=== PATIENT | female | born 1965 | race Caucasian/White ===

== ENCOUNTER 2018-01-06 01:02 | Inpatient (IN) | payer MEDICAID ==
[~2018-01-06] VITALS: Ht 172.7 cm; Wt 104.3 kg
[2018-01-06] VITALS (9 sets, daily range): BP systolic 128–162; BP diastolic 59–103
[2018-01-06] MEDS ORDERED: Albuterol ud Inhalation HHN ONE (01:15)
[2018-01-06] MEDS ORDERED: Ipratropium 0.02% Inh Soln 2.5ml UD HHN ONE (01:15)
[2018-01-06] MEDS ORDERED: Solu-MEDROL 125mg Inj IVP ONE (01:15)
[2018-01-06 01:44] LABS: BASOPHILS % (AUTO) 0.6 % (0.0-2.0); EOSINOPHILS % (AUTO) 2.5 % (0.0-3.0); HEMATOCRIT 38.3 % (37.0-47.0); HEMOGLOBIN 12.9 G/DL (12.0-16.0); LYMPHOCYTES % (AUTO) 39.8 % (20.0-45.0); MEAN CORPUSCULAR VOLUME 88 FL (80-99); NEUTROPHILS % (AUTO) 50.1 % (45.0-75.0); PLATELET COUNT 300 K/UL (150-450); RED BLOOD COUNT 4.37 M/UL (4.20-5.40); RED CELL DISTRIBUTION WIDTH 12.5 % (11.6-14.8); WHITE BLOOD COUNT 7.7 K/UL (4.8-10.8)
[2018-01-06 01:51] LABS: BILIRUBIN, URINE NEGATIVE (NEGATIVE); GLUCOSE, URINE (UA) NEGATIVE (NEGATIVE); KETONES,URINE 1+ (NEGATIVE); LEUKOCYTE ESTERASE ,URINE 1+ (NEGATIVE); NITRITE,URINE NEGATIVE (NEGATIVE); PH,URINE 5 (4.5-8.0); PROTEIN,URINE 3+ (NEGATIVE); UROBILINOGEN,URINE NORMAL MG/DL (0.0-1.0)
[2018-01-06 01:55] LABS: ANION GAP 9 mmol/L (5-15); BLOOD UREA NITROGEN 14 mg/dL (7-18); CALCIUM 9.2 MG/DL (8.5-10.1); CARBON DIOXIDE 30 MMOL/L (21-32); CHLORIDE 102 MMOL/L (98-107); SODIUM 141 MMOL/L (136-145)
[2018-01-06 01:56] LABS: COLOR,URINE YELLOW
[2018-01-06 01:57] LABS: APPEARANCE,URINE SLIGHTLY CLOUDY
[2018-01-06 02:07] LABS: ALANINE AMINOTRANSFERASE 21 U/L (12-78); ALBUMIN 3.5 G/DL (3.4-5.0); ALBUMIN/GLOBULIN RATIO 0.8 (1.0-2.7); ALKALINE PHOSPHATASE 83 U/L (46-116); ASPARTATE AMINO TRANSFERASE 21 U/L (15-37); BILIRUBIN,TOTAL 0.3 MG/DL (0.2-1.0)
--- NOTE | 2018-01-06 02:08 | Emergency Room Report ---
History of Present Illness General Chief Complaint: Dyspnea/Respdistress Source: Patient Present Illness HPI Patient has been ill for > 1 week. URI with cough and chest pain with coughing. Tonight worsened SUN. Paramedics found with O2 sat 80%. Also she had wheezes and was treated with albuterol 5 mg with improvement. Still feels CP as well as dyspnea. Allergies: Coded Allergies: SULFA (SULFONAMIDE ANTIBIOTICS) (Verified Allergy, Unknown, 01/06/18) Patient History Now: No Nursing Documentation-PMH Hx Hypertension: Yes Hx Asthma: Yes Physical Exam Vital Signs Date Time Temp Pulse Resp B/P (MAP) Pulse Ox O2 Delivery O2 Flow Rate FiO2 01/06/18 00:55 97.0 120 22 167/82 90 Room Air 01/06/18 01:20 21 Sp02 EP Interpretation: reviewed, abnormal - interpreted as low by me General Appearance: well appearing, no apparent distress, GCS 15 Head: normocephalic Eyes: bilateral eye normal inspection, bilateral eye PERRL ENT: moist mucus membranes Neck: supple Respiratory: no respiratory distress, crackles, wheezing, expiration Cardiovascular #1: tachycardia, edema - brawney bilaterally Cardiovascular #2: 2+ radial (R) Gastrointestinal: normal inspection, normal bowel sounds, non tender, no mass, non-distended Musculoskeletal: back normal, digits/nails normal, no calf tenderness Neurologic: alert, oriented x3, grossly normal Psychiatric: mood/affect normal Skin: normal inspection, warm/dry, other - chronic venous changes LE Medical Decision Making Diagnostic Impression: Primary Impression: Hypoxia Additional Impressions: Bronchospasm UTI (urinary tract infection) Qualified Codes: N30.00 - Acute cystitis without hematuria Elevated lactic acid level ER Course Patient presents with cough for approximately one week with minimal productive phlegm, wheezes and shortness of breath. Differential includes pneumonia, asthma, pneumothorax, acute myocardial infarction, PE amongst others. Patient be treated with Solu-Medrol, breathing treatments and evaluated with EKG, chest x-ray and labs. Consider non-invasive vasc study of LE. EKG shows no injury. Chest x-ray shows possible early right lobe infiltrate and COPD. Labs are significant for normal white count. Pyuria. Improved with treatment. Antibiotics begun for UTI. Admit med Dr. Balderrama. Laboratory Tests Test 01/06/18 01:15 01/06/18 01:44 White Blood Count 7.7 K/UL (4.8-10.8) Red Blood Count 4.37 M/UL (4.20-5.40) Hemoglobin 12.9 G/DL (12.0-16.0) Hematocrit 38.3 % (37.0-47.0) Mean Corpuscular Volume 88 FL (80-99) Mean Corpuscular Hemoglobin 29.6 PG (27.0-31.0) Mean Corpuscular Hemoglobin Concent 33.8 G/DL (32.0-36.0) Red Cell Distribution Width 12.5 % (11.6-14.8) Platelet Count 300 K/UL (150-450) Mean Platelet Volume 8.6 FL (6.5-10.1) Neutrophils (%) (Auto) 50.1 % (45.0-75.0) Lymphocytes (%) (Auto) 39.8 % (20.0-45.0) Monocytes (%) (Auto) 7.0 % (1.0-10.0) Eosinophils (%) (Auto) 2.5 % (0.0-3.0) Basophils (%) (Auto) 0.6 % (0.0-2.0) Prothrombin Time 10.0 SEC (9.30-11.50) Prothrombin Time INR 1.0 (0.9-1.1) PTT 24 SEC (23-33) Urine Color Yellow Urine Appearance Slightly cloudy Urine pH 5 (4.5-8.0) Urine Specific [place] 1.030 (1.005-1.035) Urine Protein 3+ (NEGATIVE) H Urine Glucose (UA) Negative (NEGATIVE) Urine Ketones 1+ (NEGATIVE) H Urine Occult Blood 1+ (NEGATIVE) H Urine Nitrite Negative (NEGATIVE) Urine Bilirubin Negative (NEGATIVE) Urine Urobilinogen Normal MG/DL (0.0-1.0) Urine Leukocyte Esterase 1+ (NEGATIVE) H Urine RBC 2-4 /HPF (0 - 2) H Urine WBC 10-15 /HPF (0 - 2) H Urine Squamous Epithelial Cells Many /LPF (NONE/OCC) H Urine Amorphous Sediment Moderate /LPF (NONE) H Urine Bacteria Moderate /HPF (NONE) H Sodium Level 141 MMOL/L (136-145) Potassium Level 3.0 MMOL/L (3.5-5.1) L Chloride Level 102 MMOL/L (98-107) Carbon Dioxide Level 30 MMOL/L (21-32) Anion Gap 9 mmol/L (5-15) Blood Urea Nitrogen 14 mg/dL (7-18) Creatinine 1.0 MG/DL (0.55-1.30) Estimate Glomerular Filtration Rate 58.2 mL/min (>60) Glucose Level 177 MG/DL (74-106) H Calcium Level 9.2 MG/DL (8.5-10.1) Total Bilirubin 0.3 MG/DL (0.2-1.0) Aspartate Amino Transferase (AST) 21 U/L (15-37) Alanine Aminotransferase (ALT) 21 U/L (12-78) Alkaline Phosphatase 83 U/L (46-116) Pro-B-Type Natriuretic Peptide 99 pg/mL (0-125) Total Protein 7.9 G/DL (6.4-8.2) Albumin 3.5 G/DL (3.4-5.0) Globulin 4.4 g/dL Albumin/Globulin Ratio 0.8 (1.0-2.7) L Lactic Acid Level 3.70 mmol/L (0.66-2.22) H Microbiology Date/Time Source Procedure Growth Status 01/06/18 01:23 Nasal Nares Influenza Types A,B Antigen (NIK) - Final Complete EKG Diagnostic Results Rate: tachycardiac Rhythm: NSR ST Segments: no acute changes Rhythm Strip Diag. Results EP Interpretation: yes Rhythm: no PVC's, no ectopy, other - ST Chest X-Ray Diagnostic Results Chest X-Ray Diagnostic Results : Chest X-Ray Ordered: Yes # of Views/Limited/Complete: 1 View Indication: Shortness of Breath EP Interpretation: Yes Interpretation: no effusion, no pneumothorax, other - RML infiltrate Status: improved Disposition: ADMITTED INPATIENT Condition: Serious Scripts Unable to Obtain Active Prescriptions or Reported Meds Arjun Mckeon M.D. Jan 06, 2018 02:08
[2018-01-06] MEDS ORDERED: cefTRIAXone 1 GM in NS 55 ML IVPB ONE (02:30)
[2018-01-06] MEDS ORDERED: Ketorolac 30mg Inj IV PRN (07:00)
[2018-01-06] MEDS ORDERED: Promethazine/Codeine 5ml UD ORAL PRN (07:00)
[2018-01-06] MEDS ORDERED: Albuterol/Ipratropium 3ml neb HHN PRN (07:00)
[2018-01-06] MEDS ORDERED: Nitroglycerin Subl 0.4mg tab SL PRN (07:00)
[2018-01-06] MEDS ORDERED: LORazepam Inj 2mg/ml 1ml IV PRN (07:00)
[2018-01-06] MEDS ORDERED: Morphine Sulfate 2mg/ml Inj IVP PRN (07:00)
[2018-01-06] MEDS: Solu-MEDROL 125mg Inj IV SCH ×2 (09:16→18:23)
[2018-01-06] MEDS: Theophylline ER 100mg ORAL SCH ×2 (09:16→20:53)
[2018-01-06] MEDS: Heparin 5000 units/ml inj SUBQ SCH ×2 (09:23→20:56)
[2018-01-06] MEDS ORDERED: Piperacillin/Tazobactam 3.375 GM in NS 110 ML IVPB SCH (10:00)
--- NOTE | 2018-01-06 10:24 | Diagnostic Imaging Report ---
Indication: Dyspnea Comparison: None A single view chest radiograph was obtained. Findings: Cardiomediastinal appearance is within normal limits for age. Pulmonary vascularity is appropriate. The diaphragmatic contour is smooth and costophrenic angles are sharp. No pleural effusions are identified. The bones are unremarkable. Impression: No acute findings
--- NOTE | 2018-01-06 18:02 | Consultation ---
History of Present Illness General Date patient seen: Jan 06, 2018 Chief Complaint: Dyspnea/Respdistress Present Illness HPI 52 year old female with hx of HTN, asthma, anxiety presented to ER with CC of dyspnea, cough, congestion for > 1 week. URI with cough and chest pain with coughing and worsened SUN. Paramedics found with O2 sat 80%. Also she had wheezes and was treated with albuterol 5 mg with improvement. Still feels CP as well as dyspnea. she is admitted for acute exacerbation of COPd and bronchitis. Allergies: Coded Allergies: SULFA (SULFONAMIDE ANTIBIOTICS) (Verified Allergy, Unknown, 01/06/18) Medication History Unable to Obtain Active Prescriptions or Reported Meds Patient History Healthcare decision maker STAN RODRIGES Resuscitation status Full Code Advanced Directive on File No Past Medical/Surgical History Past Medical/Surgical History: (1) OCD (obsessive compulsive disorder) (2) COPD (chronic obstructive pulmonary disease) Review of Systems All Other Systems: negative except mentioned in HPI Physical Exam General Appearance: WD/WN Lines, tubes and drains: peripheral HEENT: normocephalic, atraumatic Neck: non-tender, normal alignment Respiratory/Chest: rhonchi - left, rhonchi - right Abdomen: normal bowel sounds, non tender Genitourinary/Rectal: normal genital exam Extremities: normal range of motion, non-tender Last 24 Hour Vital Signs Date Time Temp Pulse Resp B/P (MAP) Pulse Ox O2 Delivery O2 Flow Rate FiO2 01/06/18 15:46 98.2 106 19 145/75 94 01/06/18 12:00 97.9 101 19 141/88 93 01/06/18 08:15 97.9 96 20 148/81 93 Room Air 01/06/18 08:00 98.2 106 22 162/90 93 01/06/18 05:29 98.1 106 19 128/75 95 Room Air 01/06/18 04:47 97.0 109 17 153/67 94 Room Air 21 01/06/18 03:19 97.0 109 17 153/67 94 Room Air 21 01/06/18 01:38 131 24 98 Room Air 21 01/06/18 01:36 136 25 Room Air 21 01/06/18 01:21 136 25 Room Air 21 01/06/18 01:20 136 25 97 Room Air 21 01/06/18 01:20 21 01/06/18 00:55 97.0 120 22 167/82 90 Room Air Intake and Output 01/05/18 01/06/18 19:00 07:00 Intake Total 0 ml Balance 0 ml Intake Oral 0 ml # Voids 1 Laboratory Tests Test 01/06/18 01:15 01/06/18 01:44 01/06/18 03:30 White Blood Count 7.7 K/UL (4.8-10.8) Red Blood Count 4.37 M/UL (4.20-5.40) Hemoglobin 12.9 G/DL (12.0-16.0) Hematocrit 38.3 % (37.0-47.0) Mean Corpuscular Volume 88 FL (80-99) Mean Corpuscular Hemoglobin 29.6 PG (27.0-31.0) Mean Corpuscular Hemoglobin Concent 33.8 G/DL (32.0-36.0) Red Cell Distribution Width 12.5 % (11.6-14.8) Platelet Count 300 K/UL (150-450) Mean Platelet Volume 8.6 FL (6.5-10.1) Neutrophils (%) (Auto) 50.1 % (45.0-75.0) Lymphocytes (%) (Auto) 39.8 % (20.0-45.0) Monocytes (%) (Auto) 7.0 % (1.0-10.0) Eosinophils (%) (Auto) 2.5 % (0.0-3.0) Basophils (%) (Auto) 0.6 % (0.0-2.0) Prothrombin Time 10.0 SEC (9.30-11.50) Prothromb Time International Ratio 1.0 (0.9-1.1) Activated Partial Thromboplast Time 24 SEC (23-33) Urine Color Yellow Urine Appearance Slightly cloudy Urine pH 5 (4.5-8.0) Urine Specific [place] 1.030 (1.005-1.035) Urine Protein 3+ (NEGATIVE) H Urine Glucose (UA) Negative (NEGATIVE) Urine Ketones 1+ (NEGATIVE) H Urine Occult Blood 1+ (NEGATIVE) H Urine Nitrite Negative (NEGATIVE) Urine Bilirubin Negative (NEGATIVE) Urine Urobilinogen Normal MG/DL (0.0-1.0) Urine Leukocyte Esterase 1+ (NEGATIVE) H Urine RBC 2-4 /HPF (0 - 2) H Urine WBC 10-15 /HPF (0 - 2) H Urine Squamous Epithelial Cells Many /LPF (NONE/OCC) H Urine Amorphous Sediment Moderate /LPF (NONE) H Urine Bacteria Moderate /HPF (NONE) H Sodium Level 141 MMOL/L (136-145) Potassium Level 3.0 MMOL/L (3.5-5.1) L Chloride Level 102 MMOL/L (98-107) Carbon Dioxide Level 30 MMOL/L (21-32) Anion Gap 9 mmol/L (5-15) Blood Urea Nitrogen 14 mg/dL (7-18) Creatinine 1.0 MG/DL (0.55-1.30) Estimat Glomerular Filtration Rate 58.2 mL/min (>60) Glucose Level 177 MG/DL (74-106) H Calcium Level 9.2 MG/DL (8.5-10.1) Total Bilirubin 0.3 MG/DL (0.2-1.0) Aspartate Amino Transf (AST/SGOT) 21 U/L (15-37) Alanine Aminotransferase (ALT/SGPT) 21 U/L (12-78) Alkaline Phosphatase 83 U/L (46-116) Pro-B-Type Natriuretic Peptide 99 pg/mL (0-125) Total Protein 7.9 G/DL (6.4-8.2) Albumin 3.5 G/DL (3.4-5.0) Globulin 4.4 g/dL Albumin/Globulin Ratio 0.8 (1.0-2.7) L Lactic Acid Level 3.70 mmol/L (0.66-2.22) H 3.60 mmol/L (0.66-2.22) H Microbiology Date/Time Source Procedure Growth Status 01/06/18 01:23 Nasal Nares Influenza Types A,B Antigen (NIK) - Final Complete Height (Feet): 5 Height (Inches): 8.00 Weight (Pounds): 230 Medications Current Medications Medications (Trade) Dose Ordered Sig/Gabrielle Route PRN Reason Start Time Stop Time Status Last Admin Dose Admin Albuterol/ Ipratropium (Albuterol/ Ipratropium) 3 ml Q4H PRN HHN dyspnea 01/06/18 07:00 01/11/18 06:59 Dextrose (Dextrose 50%) STAT PRN IV Hypoglycemia 01/06/18 07:00 02/05/18 06:59 Heparin Sodium (Porcine) (Heparin 5000 units/ml) 5,000 units EVERY 12 HOURS SUBQ 01/06/18 09:00 02/05/18 08:59 01/06/18 09:23 Ketorolac Tromethamine (Toradol 30mg) 30 mg Q8H PRN IV moderate pain 4-6 01/06/18 07:00 01/11/18 06:59 Lorazepam (Ativan 2mg/ml 1ml) 0.5 mg Q4H PRN IV For Anxiety 01/06/18 07:00 01/13/18 06:59 Methylprednisolone Sodium Succinate (Solu-MEDROL) 60 mg EVERY 6 HOURS IV 01/06/18 09:00 02/05/18 08:59 01/06/18 09:16 Morphine Sulfate (Morphine Sulfate) 2 mg Q4H PRN IVP severe pain 7-10 01/06/18 07:00 01/13/18 06:59 Nitroglycerin (Ntg) 0.4 mg Q5M X 3 DOSES PRN SL Prn Chest Pain 01/06/18 07:00 02/05/18 06:59 Ondansetron HCl (Zofran) 4 mg Q6H PRN IVP Nausea & Vomiting 01/06/18 07:00 02/05/18 06:59 Promethazine HCl/ Codeine (Phenergan with Codeine) 5 ml Q6H PRN ORAL cough 01/06/18 07:00 02/05/18 06:59 Temazepam (Restoril) 15 mg HSPRN PRN ORAL Insomnia 01/06/18 07:00 01/13/18 06:59 Theophylline ([place]) 100 mg EVERY 12 HOURS ORAL 01/06/18 09:00 02/05/18 08:59 01/06/18 09:16 Assessment/Plan Problem List: (1) Pneumonia ICD Codes: J18.9 - Pneumonia, unspecified organism SNOMED: 782578400 (2) UTI (urinary tract infection) ICD Codes: N39.0 - Urinary tract infection, site not specified SNOMED: 64867313 Qualifiers: Qualified Codes: N30.00 - Acute cystitis without hematuria (3) Hypoxia ICD Codes: R09.02 - Hypoxemia SNOMED: 821100742 (4) Bronchospasm ICD Codes: J98.01 - Acute bronchospasm SNOMED: 4568029 (5) COPD (chronic obstructive pulmonary disease) ICD Codes: J44.9 - Chronic obstructive pulmonary disease, unspecified SNOMED: 70795818 Assessment/Plan respiratory treatment IV abx, IV steroids respiratory treatment titrate fio2 BIRAN VILLARREAL Jan 06, 2018 18:02
--- NOTE | 2018-01-06 19:30 | Cardiology Report ---
APPROVED REPORT EKG Measurement Heart [id number] NM [id number] [id number] Sinus tachycardia Left ventricular hypertrophy with repolarization abnormality Cannot rule out Septal infarct, age undetermined Abnormal ECG
--- NOTE | 2018-01-06 21:45 | History and Physical Report ---
DATE OF ADMISSION: 01/06/2018 TIME: 1 p.m. CONSULTANTS: 1. Alexx Ponce M.D. 2. Dr. Torres. 3. Miguelito Saini M.D. CHIEF COMPLAINT: Pneumonia, sepsis, OCD, and COPD exacerbation. BRIEF HISTORY: This is a 52-year-old female, who lives at home with history of COPD and OCD complaining of increased shortness of breath, cough. No fevers two days. The patient came to [facility] last night, diagnosed with COPD exacerbation, pneumonia and sepsis and admitted to medical floor for further care. Currently, slightly anxious in bed, oriented x3, in no acute distress. PAST MEDICAL HISTORY: COPD, anxiety, OCD and obesity. PAST SURGICAL HISTORY: None. MEDICATIONS: Zosyn, heparin, Solu-Medrol, theophylline, albuterol, Toradol, Ativan, morphine, nitroglycerin, and Phenergan with codeine. ALLERGIES: Sulfa. SOCIAL HISTORY: No smoking. No alcohol. No intravenous drug use. FAMILY HISTORY: Noncontributory. REVIEW OF SYSTEMS: No chest pain/short of breath. No nausea, vomiting, or diarrhea. PHYSICAL EXAMINATION: GENERAL: Slightly anxious in bed, oriented x3, in no acute distress. VITAL SIGNS: Temperature is 97 degrees, pulse 101, respirations 19, and blood pressure 141/88. CARDIOVASCULAR: No murmur. LUNGS: Poor air exchange. ABDOMEN: Bowel sound distant. EXTREMITIES: No cyanosis, clubbing, or edema. NEUROLOGIC: The patient moves all extremities, slightly weak. LABORATORY AND DIAGNOSTIC DATA: CBC is normal. BMP show potassium 3.0, glucose 177 and lactic acid 3.7, otherwise BMP is normal. INR is 1.0. Urinalysis show 3+ protein, 1+ ketone, 1+ occult blood, and 1+ leukocyte esterase. ASSESSMENT: 1. Pneumonia. 2. Urinary tract infection. 3. Sepsis. 4. Chronic obstructive pulmonary disease exacerbation. 5. Anxiety. 6. Shortness of breath. 7. Coughing. 8. Obsessive-compulsive disorder 9. Hypokalemia. PLAN: 1. Continue premedications. 2. OT/PT. 3. Dietary evaluation. 4. CBC and BMP in the morning. 5. O2 and pulmonary . 6. Antibiotics per Infectious Disease. 7. Resume home medications. 8. Dr. Ponce, Dr. Torres and Dr. Shin to consult. 9. We will continue to follow the patient. Seymour Balderrama D.O. DR: HILL JOB#: [id number] CC:
--- NOTE | 2018-01-06 22:30 | Consultation ---
DATE OF CONSULTATION: 01/06/2018 INFECTIOUS DISEASE CONSULTATION CONSULTING PHYSICIAN: Adi Braun M.D. PRIMARY ATTENDING PHYSICIAN: Seymour Balderrama M.D. REASON FOR CONSULTATION: Urinary tract infection, chronic obstructive pulmonary disease exacerbation. HISTORY OF PRESENT ILLNESS: This is a 52-year-old white female, admitted today from home complaining of cough, shortness of breath, and wheezing. The patient had coughing for two weeks, states the son had also similar upper respiratory symptoms, but today also developed palpitations. The patient had history of childhood asthma and he states that he feel like shortness of breath like asthma attack. She also states she got panic. She thinks that she may have developed some urinary tract infection. She has a lot of coughing and has to go to the bathroom frequently for urination. PAST MEDICAL HISTORY: Childhood asthma and has obesity. ALLERGIES: Allergic to sulfa drugs and develops shortness of breath and presence of horses. MEDICATIONS: Zosyn, heparin, methylprednisone, theophylline, albuterol, ipratropium, Toradol, lorazepam, morphine, nitroglycerin, Zofran, and Phenergan with codeine. SOCIAL HISTORY: Lives at home. Single.. No history of alcohol, drug abuse, or smoking. He is concerned about black mold in the household. REVIEW OF SYSTEMS: No fever. No chills. Has palpitations. No nausea. No vomiting. No diarrhea. Has urinary frequency, has coughing that is usually nonproductive. PHYSICAL EXAMINATION: VITAL SIGNS: Temperature 97.9, pulse 101, and blood pressure 141/88. GENERAL APPEARANCE: Seems to be obese. HEAD AND NECK: [place] conjunctiva. No oral lesion. HEART: Tachycardic. LUNGS: Clear. ABDOMEN: Soft and obese. EXTREMITIES: She has trace edema. NEUROLOGIC: Awake, alert, and oriented. LABORATORY AND DIAGNOSTIC DATA: Labs, sodium 141, potassium 3, chloride 102, bicarbonate 30, and glucose is 177. Lactic acid is 3.6. WBC 7.7, hemoglobin 12.9, hematocrit 38.3, and platelets 300. Influenza A and B test was negative. Chest x-ray, no acute findings. She had UA that showed wbc 10 to 15 and rbc 2 to 4. IMPRESSION: Chronic obstructive pulmonary disease, asthma exacerbation, attack may be brought up by upper respiratory infection. The patient also has pyuria likely urinary tract infection. She has lactic acidosis, obesity, and tachycardia. RECOMMENDATIONS: We will stop Zosyn. We will start the patient on Zithromax and ceftriaxone. We will follow up the cultures. At the end of my exam, I thank, Dr. Seymour Balderrama for involving me in the care of this patient. Adi Braun M.D. DR: NYA JOB#: [id number] CC: OLAF
[2018-01-07] MEDS: Solu-MEDROL 125mg Inj IV SCH ×4 (00:17→21:03)
[2018-01-07 04:00] VITALS: BP 147/79
[2018-01-07 07:17] LABS: HEMATOCRIT 36.4 % (37.0-47.0); HEMOGLOBIN 12.1 G/DL (12.0-16.0); MEAN CORPUSCULAR VOLUME 88 FL (80-99); PLATELET COUNT 277 K/UL (150-450); RED BLOOD COUNT 4.12 M/UL (4.20-5.40); RED CELL DISTRIBUTION WIDTH 13.1 % (11.6-14.8); WHITE BLOOD COUNT 17.5 K/UL (4.8-10.8)
[2018-01-07 07:38] LABS: ANION GAP 10 mmol/L (5-15); BLOOD UREA NITROGEN 14 mg/dL (7-18); CALCIUM 9.2 MG/DL (8.5-10.1); CARBON DIOXIDE 23 MMOL/L (21-32); CHLORIDE 105 MMOL/L (98-107); CREATININE 0.8 MG/DL (0.55-1.30); POTASSIUM 3.9 MMOL/L (3.5-5.1); SODIUM 138 MMOL/L (136-145)
[2018-01-07 08:14] VITALS: BP 164/90
[2018-01-07] MEDS: Theophylline ER 100mg ORAL SCH ×2 (08:44→21:03)
[2018-01-07] MEDS: Heparin 5000 units/ml inj SUBQ SCH ×2 (08:46→21:09)
[2018-01-07 09:20] VITALS: BP 144/76
[2018-01-07] MEDS ORDERED: Tubing IV Secondary IV ONE (11:27)
[2018-01-07] MEDS ORDERED: NS 500ML ONE (11:27)
[2018-01-07 11:56] VITALS: BP 145/67
--- NOTE | 2018-01-07 14:58 | General Progress Note ---
Assessment/Plan Problem List: (1) COPD (chronic obstructive pulmonary disease) ICD Codes: J44.9 - Chronic obstructive pulmonary disease, unspecified SNOMED: 04901753 (2) OCD (obsessive compulsive disorder) ICD Codes: F42.9 - Obsessive-compulsive disorder, unspecified SNOMED: 692642911 (3) Pneumonia ICD Codes: J18.9 - Pneumonia, unspecified organism SNOMED: 620071396 (4) Bronchospasm ICD Codes: J98.01 - Acute bronchospasm SNOMED: 5587360 (5) Hypoxia ICD Codes: R09.02 - Hypoxemia SNOMED: 350741982 (6) UTI (urinary tract infection) ICD Codes: N39.0 - Urinary tract infection, site not specified SNOMED: 40665107 Qualifiers: Qualified Codes: N30.00 - Acute cystitis without hematuria (7) Elevated lactic acid level ICD Codes: R79.89 - Other specified abnormal findings of blood chemistry SNOMED: 2774125 Status: unchanged Assessment/Plan o2 pulm tx abx cbc bmp am Subjective Constitutional: Reports: weakness Allergies: Coded Allergies: SULFA (SULFONAMIDE ANTIBIOTICS) (Verified Allergy, Unknown, 01/06/18) All Systems: reviewed and negative except above Subjective sl cough Objective Last 24 Hour Vital Signs Date Time Temp Pulse Resp B/P (MAP) Pulse Ox O2 Delivery O2 Flow Rate FiO2 01/07/18 11:56 98.2 85 20 145/67 93 01/07/18 09:20 144/76 01/07/18 08:44 164/90 01/07/18 08:15 Room Air 01/07/18 08:14 97.7 103 20 164/90 95 01/07/18 04:00 97.5 106 21 147/79 90 Room Air 01/06/18 23:38 98.2 91 20 149/79 95 Room Air 01/06/18 22:30 142/59 01/06/18 19:50 96.8 89 20 160/79 94 Room Air 01/06/18 15:46 98.2 106 19 145/75 94 Intake and Output 01/06/18 01/07/18 19:00 07:00 Intake Total 360 ml 480 ml Balance 360 ml 480 ml Intake Oral 360 ml 480 ml # Voids 2 Laboratory Tests 01/07/18 05:25: White Blood Count 17.5#H, Red Blood Count 4.12L, Hemoglobin 12.1, Hematocrit 36.4L, Mean Corpuscular Volume 88, Mean Corpuscular Hemoglobin 29.3, Mean Corpuscular Hemoglobin Concent 33.2, Red Cell Distribution Width 13.1, Platelet Count 277, Mean Platelet Volume 8.6, Neutrophils (%) (Auto) , Lymphocytes (%) ( Auto) , Monocytes (%) (Auto) , Eosinophils (%) (Auto) , Basophils (%) (Auto) , Differential Total Cells Counted 100, Neutrophils % (Manual) 92H, Lymphocytes % (Manual) 6L, Monocytes % (Manual) 1, Eosinophils % (Manual) 0, Basophils % ( Manual) 0, Band Neutrophils 1, Platelet Estimate Adequate, Platelet Morphology Normal, Red Blood Cell Morphology Normal, Sodium Level 138, Potassium Level 3.9 , Chloride Level 105, Carbon Dioxide Level 23, Anion Gap 10, Blood Urea Nitrogen 14, Creatinine 0.8, Estimat Glomerular Filtration Rate > 60, Glucose Level 135H, Calcium Level 9.2 Height (Feet): 5 Height (Inches): 8.00 Weight (Pounds): 230 General Appearance: lethargic EENT: normal ENT inspection Neck: normal alignment Cardiovascular: normal peripheral pulses, normal rate, regular rhythm Respiratory/Chest: decreased breath sounds Abdomen: normal bowel sounds, non tender, soft Extremities: normal inspection Edema: no edema noted Arm (L), no edema noted Arm (R), no edema noted Leg (L), no edema noted Leg (R), no edema noted Pedal (L), no edema noted Pedal (R), no edema noted Generalized Neurologic: responsive, motor weakness Skin: normal pigmentation, warm/dry RUDOLPH BUTLER Jan 07, 2018 14:58
[2018-01-07] MEDS ORDERED: Azithromycin 250mg tab ORAL ONE (15:30)
[2018-01-07 15:31] VITALS: BP 142/90
--- NOTE | 2018-01-07 15:37 | Infectious Diseases Prog Note ---
Assessment/Plan Assessment/Plan A; COPD/Asthma exacerbation Leukocytosis, steroid related Bacteriuria Obesity P: Continue Zithromax & Rocephin Subjective ROS Limited/Unobtainable: No Constitutional: Reports: no symptoms HEENT: Reports: other - headache Respiratory: Reports: productive cough Cardiovascular: Reports: no symptoms Gastrointestinal/Abdominal: Reports: no symptoms Genitourinary: Reports: no symptoms Allergies: Coded Allergies: SULFA (SULFONAMIDE ANTIBIOTICS) (Verified Allergy, Unknown, 01/06/18) Objective Vital Signs Last 24 Hour Vital Signs Date Time Temp Pulse Resp B/P (MAP) Pulse Ox O2 Delivery O2 Flow Rate FiO2 01/07/18 11:56 98.2 85 20 145/67 93 01/07/18 09:20 144/76 01/07/18 08:44 164/90 01/07/18 08:15 Room Air 01/07/18 08:14 97.7 103 20 164/90 95 01/07/18 04:00 97.5 106 21 147/79 90 Room Air 01/06/18 23:38 98.2 91 20 149/79 95 Room Air 01/06/18 22:30 142/59 01/06/18 19:50 96.8 89 20 160/79 94 Room Air 01/06/18 15:46 98.2 106 19 145/75 94 Height (Feet): 5 Height (Inches): 8.00 Weight (Pounds): 230 HEENT: mucous membranes moist Respiratory/Chest: lungs clear Cardiovascular: normal rate Abdomen: soft, non tender Extremities: no edema Neurologic/Psychiatric: alert, oriented x 3, responsive Microbiology Date/Time Source Procedure Growth Status 01/06/18 04:13 Blood Blood Culture - Preliminary NO GROWTH AFTER 24 HOURS Resulted 01/06/18 04:00 Blood Blood Culture - Preliminary NO GROWTH AFTER 24 HOURS Resulted 01/06/18 17:30 Sputum Gram Stain - Final Resulted 01/06/18 17:30 Sputum Sputum Culture - Preliminary NO GROWTH Resulted 01/06/18 01:23 Nasal Nares Influenza Types A,B Antigen (NIK) - Final Complete 01/06/18 01:15 Urine,Clean Catch Urine Culture - Preliminary Gram Negative Bacillus 1 Resulted Laboratory Tests Test 01/07/18 05:25 White Blood Count 17.5 K/UL (4.8-10.8) #H Red Blood Count 4.12 M/UL (4.20-5.40) L Hemoglobin 12.1 G/DL (12.0-16.0) Hematocrit 36.4 % (37.0-47.0) L Mean Corpuscular Volume 88 FL (80-99) Mean Corpuscular Hemoglobin 29.3 PG (27.0-31.0) Mean Corpuscular Hemoglobin Concent 33.2 G/DL (32.0-36.0) Red Cell Distribution Width 13.1 % (11.6-14.8) Platelet Count 277 K/UL (150-450) Mean Platelet Volume 8.6 FL (6.5-10.1) Neutrophils (%) (Auto) % (45.0-75.0) Lymphocytes (%) (Auto) % (20.0-45.0) Monocytes (%) (Auto) % (1.0-10.0) Eosinophils (%) (Auto) % (0.0-3.0) Basophils (%) (Auto) % (0.0-2.0) Differential Total Cells Counted 100 Neutrophils % (Manual) 92 % (45-75) H Lymphocytes % (Manual) 6 % (20-45) L Monocytes % (Manual) 1 % (1-10) Eosinophils % (Manual) 0 % (0-3) Basophils % (Manual) 0 % (0-2) Band Neutrophils 1 % (0-8) Platelet Estimate Adequate Platelet Morphology Normal Red Blood Cell Morphology Normal Sodium Level 138 MMOL/L (136-145) Potassium Level 3.9 MMOL/L (3.5-5.1) Chloride Level 105 MMOL/L (98-107) Carbon Dioxide Level 23 MMOL/L (21-32) Anion Gap 10 mmol/L (5-15) Blood Urea Nitrogen 14 mg/dL (7-18) Creatinine 0.8 MG/DL (0.55-1.30) Estimat Glomerular Filtration Rate > 60 mL/min (>60) Glucose Level 135 MG/DL (74-106) H Calcium Level 9.2 MG/DL (8.5-10.1) Current Medications Medications (Trade) Dose Ordered Sig/Gabrielle Route PRN Reason Start Time Stop Time Status Last Admin Dose Admin Albuterol/ Ipratropium (Albuterol/ Ipratropium) 3 ml Q4H PRN HHN dyspnea 01/06/18 07:00 01/11/18 06:59 Azithromycin (Zithromax) 250 mg DAILY ORAL 01/08/18 09:00 01/15/18 08:59 UNV Azithromycin (Zithromax) 500 mg ONCE ONCE ORAL 01/07/18 15:30 01/07/18 15:31 UNV Ceftriaxone Sodium 1 gm/ Dextrose 55 ml @ 110 mls/hr Q24H IVPB 01/07/18 15:30 01/14/18 15:29 UNV Clonidine HCl (Catapres Tab) 0.1 mg EVERY 6 HOURS PRN ORAL SBP > 160 01/07/18 08:39 02/06/18 08:38 01/07/18 08:44 Dextrose (Dextrose 50%) STAT PRN IV Hypoglycemia 01/06/18 07:00 02/05/18 06:59 Heparin Sodium (Porcine) (Heparin 5000 units/ml) 5,000 units EVERY 12 HOURS SUBQ 01/06/18 09:00 02/05/18 08:59 01/07/18 08:46 Ketorolac Tromethamine (Toradol 30mg) 30 mg Q8H PRN IV moderate pain 4-6 01/06/18 07:00 01/11/18 06:59 Lorazepam (Ativan 2mg/ml 1ml) 0.5 mg Q4H PRN IV For Anxiety 01/06/18 07:00 01/13/18 06:59 Methylprednisolone Sodium Succinate (Solu-MEDROL) 60 mg EVERY 6 HOURS IV 01/06/18 09:00 02/05/18 08:59 01/07/18 12:18 Morphine Sulfate (Morphine Sulfate) 2 mg Q4H PRN IVP severe pain 7-10 01/06/18 07:00 01/13/18 06:59 Nitroglycerin (Ntg) 0.4 mg Q5M X 3 DOSES PRN SL Prn Chest Pain 01/06/18 07:00 02/05/18 06:59 Ondansetron HCl (Zofran) 4 mg Q6H PRN IVP Nausea & Vomiting 01/06/18 07:00 02/05/18 06:59 Promethazine HCl/ Codeine (Phenergan with Codeine) 5 ml Q6H PRN ORAL cough 01/06/18 07:00 02/05/18 06:59 2/12/18 20:56 Temazepam (Restoril) 15 mg HSPRN PRN ORAL Insomnia 01/06/18 07:00 01/13/18 06:59 Theophylline (Magan-Dur) 100 mg EVERY 12 HOURS ORAL 01/06/18 09:00 02/05/18 08:59 01/07/18 08:44 DENNIS ROLLE Jan 07, 2018 15:37
--- NOTE | 2018-01-07 16:31 | Pulmonology Progress Note ---
Assessment/Plan Assessment/Plan (1) Pneumonia (2) UTI (urinary tract infection) (3) Hypoxia (4) Bronchospasm (5) COPD (chronic obstructive pulmonary disease) Plan Respiratory treatment IV abx, IV steroids Respiratory treatment Titrate fio2 Subjective ROS Limited/Unobtainable: No Respiratory: Reports: productive cough, shortness of breath Genitourinary: Reports: dysuria, nocturia, frequency, urgency Allergies: Coded Allergies: SULFA (SULFONAMIDE ANTIBIOTICS) (Verified Allergy, Unknown, 01/06/18) Objective Last 24 Hour Vital Signs Date Time Temp Pulse Resp B/P (MAP) Pulse Ox O2 Delivery O2 Flow Rate FiO2 01/07/18 15:31 97.3 88 20 142/90 94 01/07/18 11:56 98.2 85 20 145/67 93 01/07/18 09:20 144/76 01/07/18 08:44 164/90 01/07/18 08:15 Room Air 01/07/18 08:14 97.7 103 20 164/90 95 01/07/18 04:00 97.5 106 21 147/79 90 Room Air 01/06/18 23:38 98.2 91 20 149/79 95 Room Air 01/06/18 22:30 142/59 01/06/18 19:50 96.8 89 20 160/79 94 Room Air Intake and Output 01/06/18 01/07/18 19:00 07:00 Intake Total 360 ml 480 ml Balance 360 ml 480 ml Intake Oral 360 ml 480 ml # Voids 2 Objective General Appearance: no apparent distress Head: normocephalic, atraumatic Eyes: bilateral eye PERRL, bilateral eye EOMI ENT: normal pharynx, no angioedema Neck: supple, thyroid normal Respiratory: lungs clear, normal breath sounds Cardiovascular #1: regular rate, rhythm Gastrointestinal: non tender, soft General Appearance: no acute distress HEENT: normocephalic, atraumatic, PERRL Respiratory/Chest: chest wall non-tender, decreased breath sounds, accessory muscle use Breasts: no masses Cardiovascular: normal peripheral pulses, normal rate, regular rhythm, no JVD Abdomen: normal bowel sounds, soft, non tender, no organomegaly, non distended Genitourinary: normal external genitalia Extremities: no cyanosis Skin: no rash, no lesions 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, no motor/sensory deficits Microbiology Date/Time Source Procedure Growth Status 01/06/18 04:13 Blood Blood Culture - Preliminary NO GROWTH AFTER 24 HOURS Resulted 01/06/18 04:00 Blood Blood Culture - Preliminary NO GROWTH AFTER 24 HOURS Resulted 01/06/18 17:30 Sputum Gram Stain - Final Resulted 01/06/18 17:30 Sputum Sputum Culture - Preliminary NO GROWTH Resulted 01/06/18 01:23 Nasal Nares Influenza Types A,B Antigen (NIK) - Final Complete 01/06/18 01:15 Urine,Clean Catch Urine Culture - Preliminary Gram Negative Bacillus 1 Resulted Laboratory Tests 01/07/18 05:25: White Blood Count 17.5#H, Red Blood Count 4.12L, Hemoglobin 12.1, Hematocrit 36.4L, Mean Corpuscular Volume 88, Mean Corpuscular Hemoglobin 29.3, Mean Corpuscular Hemoglobin Concent 33.2, Red Cell Distribution Width 13.1, Platelet Count 277, Mean Platelet Volume 8.6, Neutrophils (%) (Auto) , Lymphocytes (%) ( Auto) , Monocytes (%) (Auto) , Eosinophils (%) (Auto) , Basophils (%) (Auto) , Differential Total Cells Counted 100, Neutrophils % (Manual) 92H, Lymphocytes % (Manual) 6L, Monocytes % (Manual) 1, Eosinophils % (Manual) 0, Basophils % ( Manual) 0, Band Neutrophils 1, Platelet Estimate Adequate, Platelet Morphology Normal, Red Blood Cell Morphology Normal, Sodium Level 138, Potassium Level 3.9 , Chloride Level 105, Carbon Dioxide Level 23, Anion Gap 10, Blood Urea Nitrogen 14, Creatinine 0.8, Estimat Glomerular Filtration Rate > 60, Glucose Level 135H, Calcium Level 9.2 Current Medications Medications (Trade) Dose Ordered Sig/Gabrielle Route PRN Reason Start Time Stop Time Status Last Admin Dose Admin Albuterol/ Ipratropium (Albuterol/ Ipratropium) 3 ml Q4H PRN HHN dyspnea 01/06/18 07:00 01/11/18 06:59 Azithromycin (Zithromax) 250 mg DAILY@1600 ORAL 01/08/18 16:00 01/15/18 23:59 Ceftriaxone Sodium 1 gm/ Sodium Chloride 55 ml @ 110 mls/hr Q24H IVPB 01/07/18 17:00 01/14/18 23:59 Clonidine HCl (Catapres Tab) 0.1 mg EVERY 6 HOURS PRN ORAL SBP > 160 01/07/18 08:39 02/06/18 08:38 01/07/18 08:44 Dextrose (Dextrose 50%) STAT PRN IV Hypoglycemia 01/06/18 07:00 02/05/18 06:59 Heparin Sodium (Porcine) (Heparin 5000 units/ml) 5,000 units EVERY 12 HOURS SUBQ 01/06/18 09:00 02/05/18 08:59 01/07/18 08:46 Ketorolac Tromethamine (Toradol 30mg) 30 mg Q8H PRN IV moderate pain 4-6 01/06/18 07:00 01/11/18 06:59 Lorazepam (Ativan 2mg/ml 1ml) 0.5 mg Q4H PRN IV For Anxiety 01/06/18 07:00 01/13/18 06:59 Methylprednisolone Sodium Succinate (Solu-MEDROL) 60 mg EVERY 6 HOURS IV 01/06/18 09:00 02/05/18 08:59 01/07/18 12:18 Morphine Sulfate (Morphine Sulfate) 2 mg Q4H PRN IVP severe pain 7-10 01/06/18 07:00 01/13/18 06:59 Nitroglycerin (Ntg) 0.4 mg Q5M X 3 DOSES PRN SL Prn Chest Pain 01/06/18 07:00 02/05/18 06:59 Ondansetron HCl (Zofran) 4 mg Q6H PRN IVP Nausea & Vomiting 01/06/18 07:00 02/05/18 06:59 Promethazine HCl/ Codeine (Phenergan with Codeine) 5 ml Q6H PRN ORAL cough 01/06/18 07:00 02/05/18 06:59 01/06/18 20:56 Temazepam (Restoril) 15 mg HSPRN PRN ORAL Insomnia 01/06/18 07:00 01/13/18 06:59 Theophylline (Magan-Dur) 100 mg EVERY 12 HOURS ORAL 01/06/18 09:00 02/05/18 08:59 01/07/18 08:44 BRIAN VILLARREAL Jan 07, 2018 16:31
--- NOTE | 2018-01-07 17:15 | Pulmonology Progress Note ---
Assessment/Plan Problems: (1) Pneumonia (2) UTI (urinary tract infection) (3) Hypoxia (4) Bronchospasm (5) COPD (chronic obstructive pulmonary disease) Assessment/Plan improving respiratory treatment check sputum taper steroids dvt prophylaxis. Subjective ROS Limited/Unobtainable: No Interval Events: improving Allergies: Coded Allergies: SULFA (SULFONAMIDE ANTIBIOTICS) (Verified Allergy, Unknown, 01/06/18) Objective Last 24 Hour Vital Signs Date Time Temp Pulse Resp B/P (MAP) Pulse Ox O2 Delivery O2 Flow Rate FiO2 01/07/18 15:31 97.3 88 20 142/90 94 01/07/18 11:56 98.2 85 20 145/67 93 01/07/18 09:20 144/76 01/07/18 08:44 164/90 01/07/18 08:15 Room Air 01/07/18 08:14 97.7 103 20 164/90 95 01/07/18 04:00 97.5 106 21 147/79 90 Room Air 01/06/18 23:38 98.2 91 20 149/79 95 Room Air 01/06/18 22:30 142/59 01/06/18 19:50 96.8 89 20 160/79 94 Room Air Intake and Output 01/06/18 01/07/18 19:00 07:00 Intake Total 360 ml 480 ml Balance 360 ml 480 ml Intake Oral 360 ml 480 ml # Voids 2 Objective General Appearance: no apparent distress Head: normocephalic, atraumatic Eyes: bilateral eye PERRL, bilateral eye EOMI ENT: normal pharynx, no angioedema Neck: supple, thyroid normal Respiratory: lungs clear, normal breath sounds Cardiovascular #1: regular rate, rhythm Gastrointestinal: non tender, soft Microbiology Date/Time Source Procedure Growth Status 01/06/18 04:13 Blood Blood Culture - Preliminary NO GROWTH AFTER 24 HOURS Resulted 01/06/18 04:00 Blood Blood Culture - Preliminary NO GROWTH AFTER 24 HOURS Resulted 01/06/18 17:30 Sputum Gram Stain - Final Resulted 01/06/18 17:30 Sputum Sputum Culture - Preliminary NO GROWTH Resulted 01/06/18 01:23 Nasal Nares Influenza Types A,B Antigen (NIK) - Final Complete 01/06/18 01:15 Urine,Clean Catch Urine Culture - Preliminary Gram Negative Bacillus 1 Resulted Laboratory Tests 01/07/18 05:25: White Blood Count 17.5#H, Red Blood Count 4.12L, Hemoglobin 12.1, Hematocrit 36.4L, Mean Corpuscular Volume 88, Mean Corpuscular Hemoglobin 29.3, Mean Corpuscular Hemoglobin Concent 33.2, Red Cell Distribution Width 13.1, Platelet Count 277, Mean Platelet Volume 8.6, Neutrophils (%) (Auto) , Lymphocytes (%) ( Auto) , Monocytes (%) (Auto) , Eosinophils (%) (Auto) , Basophils (%) (Auto) , Differential Total Cells Counted 100, Neutrophils % (Manual) 92H, Lymphocytes % (Manual) 6L, Monocytes % (Manual) 1, Eosinophils % (Manual) 0, Basophils % ( Manual) 0, Band Neutrophils 1, Platelet Estimate Adequate, Platelet Morphology Normal, Red Blood Cell Morphology Normal, Sodium Level 138, Potassium Level 3.9 , Chloride Level 105, Carbon Dioxide Level 23, Anion Gap 10, Blood Urea Nitrogen 14, Creatinine 0.8, Estimat Glomerular Filtration Rate > 60, Glucose Level 135H, Calcium Level 9.2 Current Medications Medications (Trade) Dose Ordered Sig/Gabrielle Route PRN Reason Start Time Stop Time Status Last Admin Dose Admin Albuterol/ Ipratropium (Albuterol/ Ipratropium) 3 ml Q4H PRN HHN dyspnea 01/06/18 07:00 01/11/18 06:59 Azithromycin (Zithromax) 250 mg DAILY@1600 ORAL 01/08/18 16:00 01/15/18 23:59 Ceftriaxone Sodium 1 gm/ Sodium Chloride 55 ml @ 110 mls/hr Q24H IVPB 01/07/18 17:00 01/14/18 23:59 Clonidine HCl (Catapres Tab) 0.1 mg EVERY 6 HOURS PRN ORAL SBP > 160 01/07/18 08:39 02/06/18 08:38 01/07/18 08:44 Dextrose (Dextrose 50%) STAT PRN IV Hypoglycemia 01/06/18 07:00 02/05/18 06:59 Heparin Sodium (Porcine) (Heparin 5000 units/ml) 5,000 units EVERY 12 HOURS SUBQ 01/06/18 09:00 02/05/18 08:59 01/07/18 08:46 Ketorolac Tromethamine (Toradol 30mg) 30 mg Q8H PRN IV moderate pain 4-6 01/06/18 07:00 01/11/18 06:59 Lorazepam (Ativan 2mg/ml 1ml) 0.5 mg Q4H PRN IV For Anxiety 01/06/18 07:00 01/13/18 06:59 Methylprednisolone Sodium Succinate (Solu-MEDROL) 60 mg EVERY 6 HOURS IV 01/06/18 09:00 02/05/18 08:59 01/07/18 12:18 Morphine Sulfate (Morphine Sulfate) 2 mg Q4H PRN IVP severe pain 7-10 01/06/18 07:00 01/13/18 06:59 Nitroglycerin (Ntg) 0.4 mg Q5M X 3 DOSES PRN SL Prn Chest Pain 01/06/18 07:00 02/05/18 06:59 Ondansetron HCl (Zofran) 4 mg Q6H PRN IVP Nausea & Vomiting 01/06/18 07:00 02/05/18 06:59 Promethazine HCl/ Codeine (Phenergan with Codeine) 5 ml Q6H PRN ORAL cough 01/06/18 07:00 02/05/18 06:59 01/06/18 20:56 Temazepam (Restoril) 15 mg HSPRN PRN ORAL Insomnia 01/06/18 07:00 01/13/18 06:59 Theophylline (Magan-Dur) 100 mg EVERY 12 HOURS ORAL 01/06/18 09:00 02/05/18 08:59 01/07/18 08:44 BRIAN VILLARREAL Jan 07, 2018 17:15
[2018-01-07] MEDS: cefTRIAXone 1 GM in NS 55 ML IVPB SCH (17:40)
[2018-01-07 19:56] VITALS: BP 152/94
--- NOTE | 2018-01-07 20:47 | Wound Care Consultation ---
Wound Assessment Wound Assessment #1: Wound Number: 1 Wound Present on Admission: Yes New Wound: No Status Change of Wound: No Wound Location Body Site Modif: mid Wound Location Body Site: coccyx Wound Type: pressure ulcer Bri Test: Does not Bri Pressure Ulcer Stage: Deep Tissue Injury Wound Thickness: Full Thickness Wound Length: 2.5 Wound Width: 2.0 Wound Depth: utd Percent of Wound Purple/Maroon: 100 Wound Drainage Amount: None Wound Drainage Odor: None/Absent Tissue Surrounding Wound: Erythemic Wound General Appearance: Reddened - purple Wound Assessment #2: Wound Number: 2 Wound Present on Admission: Yes New Wound: No Status Change of Wound: No Wound Location Body Site Modif: left, right, medial Wound Location Body Site: thigh Wound Type: blister - open scattered Bri Test: Does not Bri Wound Thickness: Partial Thickness Wound Depth: less than 0.1 Percent of Wound [place]/Red: 100 Wound Drainage Amount: None Wound Drainage Odor: None/Absent Tissue Surrounding Wound: Intact Wound General Appearance: Reddened Wound Assessment #3: Wound Number: 3 Wound Present on Admission: Yes New Wound: No Status Change of Wound: No Wound Location Body Site: abdominal fold Wound Type: other - redness Bri Test: Does not Bri Percent of Wound [place]/Red: 100 Wound Drainage Amount: None Wound Drainage Odor: None/Absent Tissue Surrounding Wound: Intact Wound General Appearance: Reddened Wound Comment #1 Coccygeal DTI pressure ulcer #2 Redness on abdominal folds #3 Left and right medial thigh open blisters Recommendation -Local wound care per protocol -Offload both heels -Heel protector on both heels -Optimize nutrition -Keep clean and dry -Turn and reposition -Low air loss mattress -Assess and f/u accordingly for any changes REGI ALY RN Jan 07, 2018 20:46
[2018-01-08] VITALS: BP 146/88
[2018-01-08 04:00] VITALS: BP 126/87
[2018-01-08 07:33] LABS: ANION GAP 9 mmol/L (5-15); CARBON DIOXIDE 25 MMOL/L (21-32); CHLORIDE 104 MMOL/L (98-107); POTASSIUM 3.8 MMOL/L (3.5-5.1); SODIUM 138 MMOL/L (136-145)
[2018-01-08 07:34] LABS: ALANINE AMINOTRANSFERASE 17 U/L (12-78); ALBUMIN 3.1 G/DL (3.4-5.0); ALBUMIN/GLOBULIN RATIO 0.7 (1.0-2.7); ALKALINE PHOSPHATASE 75 U/L (46-116); ASPARTATE AMINO TRANSFERASE 12 U/L (15-37); BILIRUBIN,TOTAL 0.2 MG/DL (0.2-1.0); BLOOD UREA NITROGEN 17 mg/dL (7-18); CREATININE 0.8 MG/DL (0.55-1.30)
[2018-01-08 07:38] LABS: PHOSPHORUS 3.4 MG/DL (2.5-4.9)
[2018-01-08 07:50] LABS: HEMATOCRIT 36.9 % (37.0-47.0); HEMOGLOBIN 12.2 G/DL (12.0-16.0); MEAN CORPUSCULAR VOLUME 88 FL (80-99); PLATELET COUNT 297 K/UL (150-450); RED BLOOD COUNT 4.19 M/UL (4.20-5.40); RED CELL DISTRIBUTION WIDTH 12.9 % (11.6-14.8); WHITE BLOOD COUNT 17.2 K/UL (4.8-10.8)
[2018-01-08] MEDS: Theophylline ER 100mg ORAL SCH ×2 (08:39→21:04)
[2018-01-08] MEDS: Solu-MEDROL 125mg Inj IV SCH (08:39)
[2018-01-08] MEDS: Heparin 5000 units/ml inj SUBQ SCH ×2 (08:49→21:07)
[2018-01-08 09:00] VITALS: BP 122/69
[2018-01-08 12:00] VITALS: BP 144/79
--- NOTE | 2018-01-08 12:11 | General Progress Note ---
Assessment/Plan Problem List: (1) COPD (chronic obstructive pulmonary disease) ICD Codes: J44.9 - Chronic obstructive pulmonary disease, unspecified SNOMED: 56797206 (2) OCD (obsessive compulsive disorder) ICD Codes: F42.9 - Obsessive-compulsive disorder, unspecified SNOMED: 543153499 (3) Pneumonia ICD Codes: J18.9 - Pneumonia, unspecified organism SNOMED: 799689094 (4) Bronchospasm ICD Codes: J98.01 - Acute bronchospasm SNOMED: 1881435 (5) Hypoxia ICD Codes: R09.02 - Hypoxemia SNOMED: 692434599 (6) UTI (urinary tract infection) ICD Codes: N39.0 - Urinary tract infection, site not specified SNOMED: 16884917 Qualifiers: Qualified Codes: N30.00 - Acute cystitis without hematuria (7) Elevated lactic acid level ICD Codes: R79.89 - Other specified abnormal findings of blood chemistry SNOMED: 5389356 Status: stable, progressing, tolerating diet Assessment/Plan o2 pulm tx abx cbc bmp am Subjective Constitutional: Reports: weakness Respiratory: Reports: shortness of breath Allergies: Coded Allergies: SULFA (SULFONAMIDE ANTIBIOTICS) (Verified Allergy, Unknown, 01/06/18) All Systems: reviewed and negative except above Subjective sl cough Objective Last 24 Hour Vital Signs Date Time Temp Pulse Resp B/P (MAP) Pulse Ox O2 Delivery O2 Flow Rate FiO2 01/08/18 09:00 97.7 107 18 122/69 96 01/08/18 04:00 Room Air 01/08/18 04:00 97.7 96 18 126/87 93 01/08/18 00:00 97.4 88 19 146/88 94 01/07/18 20:21 90 18 Room Air 21 01/07/18 20:00 Room Air 01/07/18 19:56 97.7 89 18 152/94 94 01/07/18 15:31 97.3 88 20 142/90 94 Intake and Output 01/07/18 01/08/18 19:00 07:00 Intake Total 960 ml 490 ml Balance 960 ml 490 ml Intake Oral 960 ml 490 ml # Voids 3 Laboratory Tests 01/08/18 05:40: White Blood Count 17.2H, Red Blood Count 4.19L, Hemoglobin 12.2, Hematocrit 36.9L, Mean Corpuscular Volume 88, Mean Corpuscular Hemoglobin 29.0, Mean Corpuscular Hemoglobin Concent 32.9, Red Cell Distribution Width 12.9, Platelet Count 297, Mean Platelet Volume 9.4, Neutrophils (%) (Auto) , Lymphocytes (%) ( Auto) , Monocytes (%) (Auto) , Eosinophils (%) (Auto) , Basophils (%) (Auto) , Differential Total Cells Counted 100, Neutrophils % (Manual) 93H, Lymphocytes % (Manual) 5L, Monocytes % (Manual) 2, Eosinophils % (Manual) 0, Basophils % ( Manual) 0, Band Neutrophils 0, Platelet Estimate Adequate, Platelet Morphology Normal, Red Blood Cell Morphology Normal, Erythrocyte Sedimentation Rate 27, Sodium Level 138, Potassium Level 3.8, Chloride Level 104, Carbon Dioxide Level 25, Anion Gap 9, Blood Urea Nitrogen 17, Creatinine 0.8, Estimat Glomerular Filtration Rate > 60, Glucose Level 113H, Calcium Level 9.0, Phosphorus Level 3.4, Magnesium Level 2.4, Total Bilirubin 0.2, Aspartate Amino Transf (AST/SGOT ) 12L, Alanine Aminotransferase (ALT/SGPT) 17, Alkaline Phosphatase 75, C- Reactive Protein, Quantitative 0.4, Total Protein 7.5, Albumin 3.1L, Globulin 4.4, Albumin/Globulin Ratio 0.7L Height (Feet): 5 Height (Inches): 8.00 Weight (Pounds): 230 General Appearance: alert EENT: normal ENT inspection Neck: normal alignment Cardiovascular: normal peripheral pulses, normal rate, regular rhythm Respiratory/Chest: decreased breath sounds Abdomen: normal bowel sounds, non tender, soft Extremities: normal inspection Edema: no edema noted Arm (L), no edema noted Arm (R), no edema noted Leg (L), no edema noted Leg (R), no edema noted Pedal (L), no edema noted Pedal (R), no edema noted Generalized Neurologic: responsive, motor weakness Skin: normal pigmentation, warm/dry RUDOLPH BUTLER Jan 08, 2018 12:11
--- NOTE | 2018-01-08 13:39 | Infectious Diseases Prog Note ---
Assessment/Plan Assessment/Plan A; COPD/Asthma exacerbation Leukocytosis, steroid related Bacteriuria Obesity P: Continue Zithromax & Rocephin Subjective ROS Limited/Unobtainable: No Constitutional: Reports: no symptoms, other - doing better Respiratory: Reports: shortness of breath, dry cough Genitourinary: Reports: other - stress incontinence Skin: Reports: ulcer Allergies: Coded Allergies: SULFA (SULFONAMIDE ANTIBIOTICS) (Verified Allergy, Unknown, 01/06/18) Objective Vital Signs Last 24 Hour Vital Signs Date Time Temp Pulse Resp B/P (MAP) Pulse Ox O2 Delivery O2 Flow Rate FiO2 01/08/18 12:00 97.7 81 19 144/79 96 01/08/18 09:00 97.7 107 18 122/69 96 01/08/18 04:00 Room Air 01/08/18 04:00 97.7 96 18 126/87 93 01/08/18 00:00 97.4 88 19 146/88 94 01/07/18 20:21 90 18 Room Air 21 01/07/18 20:00 Room Air 01/07/18 19:56 97.7 89 18 152/94 94 01/07/18 15:31 97.3 88 20 142/90 94 Height (Feet): 5 Height (Inches): 8.00 Weight (Pounds): 230 HEENT: mucous membranes moist Respiratory/Chest: lungs clear Cardiovascular: normal rate Abdomen: soft, non tender Extremities: no edema Skin: ulcers, other - coccyx Neurologic/Psychiatric: alert, oriented x 3, responsive Microbiology Date/Time Source Procedure Growth Status 01/06/18 04:13 Blood Blood Culture - Preliminary NO GROWTH AFTER 48 HOURS Resulted 01/06/18 04:00 Blood Blood Culture - Preliminary NO GROWTH AFTER 48 HOURS Resulted 01/06/18 17:30 Sputum Gram Stain - Final Complete 01/06/18 17:30 Sputum Sputum Culture - Final NORMAL UPPER RESPIRATORY JONNY PRESENT Complete 01/06/18 01:23 Nasal Nares Influenza Types A,B Antigen (NIK) - Final Complete 01/06/18 01:15 Urine,Clean Catch Urine Culture - Final Proteus Mirabilis Mixed Gram Positive Organism Complete Laboratory Tests Test 01/08/18 05:40 White Blood Count 17.2 K/UL (4.8-10.8) H Red Blood Count 4.19 M/UL (4.20-5.40) L Hemoglobin 12.2 G/DL (12.0-16.0) Hematocrit 36.9 % (37.0-47.0) L Mean Corpuscular Volume 88 FL (80-99) Mean Corpuscular Hemoglobin 29.0 PG (27.0-31.0) Mean Corpuscular Hemoglobin Concent 32.9 G/DL (32.0-36.0) Red Cell Distribution Width 12.9 % (11.6-14.8) Platelet Count 297 K/UL (150-450) Mean Platelet Volume 9.4 FL (6.5-10.1) Neutrophils (%) (Auto) % (45.0-75.0) Lymphocytes (%) (Auto) % (20.0-45.0) Monocytes (%) (Auto) % (1.0-10.0) Eosinophils (%) (Auto) % (0.0-3.0) Basophils (%) (Auto) % (0.0-2.0) Differential Total Cells Counted 100 Neutrophils % (Manual) 93 % (45-75) H Lymphocytes % (Manual) 5 % (20-45) L Monocytes % (Manual) 2 % (1-10) Eosinophils % (Manual) 0 % (0-3) Basophils % (Manual) 0 % (0-2) Band Neutrophils 0 % (0-8) Platelet Estimate Adequate Platelet Morphology Normal Red Blood Cell Morphology Normal Erythrocyte Sedimentation Rate 27 MM/HR (0-30) Sodium Level 138 MMOL/L (136-145) Potassium Level 3.8 MMOL/L (3.5-5.1) Chloride Level 104 MMOL/L (98-107) Carbon Dioxide Level 25 MMOL/L (21-32) Anion Gap 9 mmol/L (5-15) Blood Urea Nitrogen 17 mg/dL (7-18) Creatinine 0.8 MG/DL (0.55-1.30) Estimat Glomerular Filtration Rate > 60 mL/min (>60) Glucose Level 113 MG/DL (74-106) H Calcium Level 9.0 MG/DL (8.5-10.1) Phosphorus Level 3.4 MG/DL (2.5-4.9) Magnesium Level 2.4 MG/DL (1.5-2.4) Total Bilirubin 0.2 MG/DL (0.2-1.0) Aspartate Amino Transf (AST/SGOT) 12 U/L (15-37) L Alanine Aminotransferase (ALT/SGPT) 17 U/L (12-78) Alkaline Phosphatase 75 U/L (46-116) C-Reactive Protein, Quantitative 0.4 mg/dL (0.00-0.90) Total Protein 7.5 G/DL (6.4-8.2) Albumin 3.1 G/DL (3.4-5.0) L Globulin 4.4 g/dL Albumin/Globulin Ratio 0.7 (1.0-2.7) L Current Medications Medications (Trade) Dose Ordered Sig/Gabrielle Route PRN Reason Start Time Stop Time Status Last Admin Dose Admin Albuterol/ Ipratropium (Albuterol/ Ipratropium) 3 ml Q4H PRN HHN dyspnea 01/06/18 07:00 01/11/18 06:59 Azithromycin (Zithromax) 250 mg DAILY@1600 ORAL 01/08/18 16:00 01/15/18 23:59 Ceftriaxone Sodium 1 gm/ Sodium Chloride 55 ml @ 110 mls/hr Q24H IVPB 01/07/18 17:00 01/14/18 23:59 01/07/18 17:40 Clonidine HCl (Catapres Tab) 0.1 mg EVERY 6 HOURS PRN ORAL SBP > 160 01/07/18 08:39 02/06/18 08:38 01/07/18 08:44 Dextrose (Dextrose 50%) STAT PRN IV Hypoglycemia 01/06/18 07:00 02/05/18 06:59 Heparin Sodium (Porcine) (Heparin 5000 units/ml) 5,000 units EVERY 12 HOURS SUBQ 01/06/18 09:00 02/05/18 08:59 01/08/18 08:49 Ketorolac Tromethamine (Toradol 30mg) 30 mg Q8H PRN IV moderate pain 4-6 01/06/18 07:00 01/11/18 06:59 Lorazepam (Ativan 2mg/ml 1ml) 0.5 mg Q4H PRN IV For Anxiety 01/06/18 07:00 01/13/18 06:59 Methylprednisolone Sodium Succinate (Solu-MEDROL) 60 mg EVERY 12 HOURS IV 01/07/18 21:00 02/05/18 08:59 01/08/18 08:39 Morphine Sulfate (Morphine Sulfate) 2 mg Q4H PRN IVP severe pain 7-10 01/06/18 07:00 01/13/18 06:59 Nitroglycerin (Ntg) 0.4 mg Q5M X 3 DOSES PRN SL Prn Chest Pain 01/06/18 07:00 02/05/18 06:59 Ondansetron HCl (Zofran) 4 mg Q6H PRN IVP Nausea & Vomiting 01/06/18 07:00 02/05/18 06:59 Promethazine HCl/ Codeine (Phenergan with Codeine) 5 ml Q6H PRN ORAL cough 01/06/18 07:00 02/05/18 06:59 01/06/18 20:56 Temazepam (Restoril) 15 mg HSPRN PRN ORAL Insomnia 01/06/18 07:00 01/13/18 06:59 Theophylline (Magan-Dur) 100 mg EVERY 12 HOURS ORAL 01/06/18 09:00 02/05/18 08:59 01/08/18 08:39 DENNIS ROLLE Jan 08, 2018 13:39
--- NOTE | 2018-01-08 15:34 | Pulmonology Progress Note ---
Assessment/Plan Problems: (1) Pneumonia (2) UTI (urinary tract infection) (3) Hypoxia (4) Bronchospasm (5) COPD (chronic obstructive pulmonary disease) Assessment/Plan taper steroids check cbc/ improving respiratory treatment check sputum taper steroids dvt prophylaxis. Subjective ROS Limited/Unobtainable: No Constitutional: Reports: no symptoms HEENT: Repors: no symptoms Respiratory: Reports: no symptoms Allergies: Coded Allergies: SULFA (SULFONAMIDE ANTIBIOTICS) (Verified Allergy, Unknown, 01/06/18) Objective Last 24 Hour Vital Signs Date Time Temp Pulse Resp B/P (MAP) Pulse Ox O2 Delivery O2 Flow Rate FiO2 01/08/18 12:00 97.7 81 19 144/79 96 01/08/18 09:00 97.7 107 18 122/69 96 01/08/18 04:00 Room Air 01/08/18 04:00 97.7 96 18 126/87 93 01/08/18 00:00 97.4 88 19 146/88 94 01/07/18 20:21 90 18 Room Air 21 01/07/18 20:00 Room Air 01/07/18 19:56 97.7 89 18 152/94 94 Intake and Output 01/07/18 01/08/18 19:00 07:00 Intake Total 960 ml 490 ml Balance 960 ml 490 ml Intake Oral 960 ml 490 ml # Voids 3 Objective General Appearance: no apparent distress Head: normocephalic, atraumatic Eyes: bilateral eye PERRL, bilateral eye EOMI ENT: normal pharynx, no angioedema Neck: supple, thyroid normal Respiratory: lungs clear, normal breath sounds Cardiovascular #1: regular rate, rhythm Gastrointestinal: non tender, soft Microbiology Date/Time Source Procedure Growth Status 01/06/18 04:13 Blood Blood Culture - Preliminary NO GROWTH AFTER 48 HOURS Resulted 01/06/18 04:00 Blood Blood Culture - Preliminary NO GROWTH AFTER 48 HOURS Resulted 01/06/18 17:30 Sputum Gram Stain - Final Complete 01/06/18 17:30 Sputum Sputum Culture - Final NORMAL UPPER RESPIRATORY JONNY PRESENT Complete 01/06/18 01:23 Nasal Nares Influenza Types A,B Antigen (NIK) - Final Complete 01/06/18 01:15 Urine,Clean Catch Urine Culture - Final Proteus Mirabilis Mixed Gram Positive Organism Complete Laboratory Tests 01/08/18 05:40: White Blood Count 17.2H, Red Blood Count 4.19L, Hemoglobin 12.2, Hematocrit 36.9L, Mean Corpuscular Volume 88, Mean Corpuscular Hemoglobin 29.0, Mean Corpuscular Hemoglobin Concent 32.9, Red Cell Distribution Width 12.9, Platelet Count 297, Mean Platelet Volume 9.4, Neutrophils (%) (Auto) , Lymphocytes (%) ( Auto) , Monocytes (%) (Auto) , Eosinophils (%) (Auto) , Basophils (%) (Auto) , Differential Total Cells Counted 100, Neutrophils % (Manual) 93H, Lymphocytes % (Manual) 5L, Monocytes % (Manual) 2, Eosinophils % (Manual) 0, Basophils % ( Manual) 0, Band Neutrophils 0, Platelet Estimate Adequate, Platelet Morphology Normal, Red Blood Cell Morphology Normal, Erythrocyte Sedimentation Rate 27, Sodium Level 138, Potassium Level 3.8, Chloride Level 104, Carbon Dioxide Level 25, Anion Gap 9, Blood Urea Nitrogen 17, Creatinine 0.8, Estimat Glomerular Filtration Rate > 60, Glucose Level 113H, Calcium Level 9.0, Phosphorus Level 3.4, Magnesium Level 2.4, Total Bilirubin 0.2, Aspartate Amino Transf (AST/SGOT ) 12L, Alanine Aminotransferase (ALT/SGPT) 17, Alkaline Phosphatase 75, C- Reactive Protein, Quantitative 0.4, Total Protein 7.5, Albumin 3.1L, Globulin 4.4, Albumin/Globulin Ratio 0.7L Current Medications Medications (Trade) Dose Ordered Sig/Gabrielle Route PRN Reason Start Time Stop Time Status Last Admin Dose Admin Albuterol/ Ipratropium (Albuterol/ Ipratropium) 3 ml Q4H PRN HHN dyspnea 01/06/18 07:00 01/11/18 06:59 Azithromycin (Zithromax) 250 mg DAILY@1600 ORAL 01/08/18 16:00 01/15/18 23:59 Ceftriaxone Sodium 1 gm/ Sodium Chloride 55 ml @ 110 mls/hr Q24H IVPB 01/07/18 17:00 01/14/18 23:59 01/07/18 17:40 Clonidine HCl (Catapres Tab) 0.1 mg EVERY 6 HOURS PRN ORAL SBP > 160 01/07/18 08:39 02/06/18 08:38 01/07/18 08:44 Dextrose (Dextrose 50%) STAT PRN IV Hypoglycemia 01/06/18 07:00 02/05/18 06:59 Heparin Sodium (Porcine) (Heparin 5000 units/ml) 5,000 units EVERY 12 HOURS SUBQ 01/06/18 09:00 02/05/18 08:59 01/08/18 08:49 Ketorolac Tromethamine (Toradol 30mg) 30 mg Q8H PRN IV moderate pain 4-6 01/06/18 07:00 01/11/18 06:59 Lorazepam (Ativan 2mg/ml 1ml) 0.5 mg Q4H PRN IV For Anxiety 01/06/18 07:00 01/13/18 06:59 Methylprednisolone Sodium Succinate (Solu-MEDROL) 60 mg EVERY 12 HOURS IV 01/07/18 21:00 02/05/18 08:59 01/08/18 08:39 Morphine Sulfate (Morphine Sulfate) 2 mg Q4H PRN IVP severe pain 7-10 01/06/18 07:00 01/13/18 06:59 Nitroglycerin (Ntg) 0.4 mg Q5M X 3 DOSES PRN SL Prn Chest Pain 01/06/18 07:00 02/05/18 06:59 Ondansetron HCl (Zofran) 4 mg Q6H PRN IVP Nausea & Vomiting 01/06/18 07:00 02/05/18 06:59 Promethazine HCl/ Codeine (Phenergan with Codeine) 5 ml Q6H PRN ORAL cough 01/06/18 07:00 02/05/18 06:59 01/06/18 20:56 Temazepam (Restoril) 15 mg HSPRN PRN ORAL Insomnia 01/06/18 07:00 01/13/18 06:59 Theophylline (Magan-Dur) 100 mg EVERY 12 HOURS ORAL 01/06/18 09:00 02/05/18 08:59 01/08/18 08:39 BRIAN VILLARREAL Jan 08, 2018 15:34
[2018-01-08] MEDS: Azithromycin 250mg tab ORAL SCH (15:58)
[2018-01-08 16:00] VITALS: BP 147/79
[2018-01-08] MEDS: cefTRIAXone 1 GM in NS 55 ML IVPB SCH (16:00)
[2018-01-08 20:00] VITALS: BP 148/75
[2018-01-09] VITALS: BP 153/81
[2018-01-09 03:24] VITALS: BP 131/68
[2018-01-09 07:10] LABS: BASOPHILS % (AUTO) 0.3 % (0.0-2.0); HEMATOCRIT 36.8 % (37.0-47.0); HEMOGLOBIN 12.4 G/DL (12.0-16.0); LYMPHOCYTES % (AUTO) 26.1 % (20.0-45.0); MEAN CORPUSCULAR VOLUME 87 FL (80-99); MONOCYTES % (AUTO) 6.4 % (1.0-10.0); NEUTROPHILS % (AUTO) 67.2 % (45.0-75.0); PLATELET COUNT 267 K/UL (150-450); RED BLOOD COUNT 4.21 M/UL (4.20-5.40); RED CELL DISTRIBUTION WIDTH 12.9 % (11.6-14.8); WHITE BLOOD COUNT 12.6 K/UL (4.8-10.8)
[2018-01-09 07:12] LABS: ANION GAP 8 mmol/L (5-15); BLOOD UREA NITROGEN 19 mg/dL (7-18); CALCIUM 8.4 MG/DL (8.5-10.1); CARBON DIOXIDE 27 MMOL/L (21-32); CHLORIDE 105 MMOL/L (98-107); CREATININE 0.9 MG/DL (0.55-1.30); POTASSIUM 3.4 MMOL/L (3.5-5.1); SODIUM 140 MMOL/L (136-145)
[2018-01-09 08:00] VITALS: BP 151/83
--- NOTE | 2018-01-09 08:19 | Pulmonology Progress Note ---
Assessment/Plan Assessment/Plan ASSESSMENT possible UTI, likely bacteriuria acute COPD/asthma exacerbation with bronchospasm -resolving possible pneumonitis ( no PNA) lactic acidosis hypoxia-initially, resolved in ED Leukocytosis, steroid induced obesity PLAN OF CARE MS floor O2 HHN prn CXR negative empiric abx ID follows Sputum cx and blood cx negative, urine cx +Proteus, GPO, no urinary complaints IV steroids and taper , in am start oral theophylline continue a/tussive prn and add Tessalon possibly hypersensitivity pneumonitis ( happened after repairs in the building ) DVT prophylaxis leukocytosis likely steroid induced, afebrile dc plan case discussed and evaluated by supervising physician Subjective Allergies: Coded Allergies: SULFA (SULFONAMIDE ANTIBIOTICS) (Verified Allergy, Unknown, 01/06/18) Subjective leucocytosis trending down,afebrile pulse ox stable on RA + cough, dry, irritating , no hemoptysis wheezing resolved denies CP, SOB Objective Last 24 Hour Vital Signs Date Time Temp Pulse Resp B/P (MAP) Pulse Ox O2 Delivery O2 Flow Rate FiO2 01/09/18 03:24 98.2 78 20 131/68 93 Room Air 01/09/18 00:00 98.3 85 12 153/81 100 Room Air 01/08/18 20:00 98.3 80 20 148/75 100 Room Air 01/08/18 16:00 97.1 63 18 147/79 94 01/08/18 12:00 97.7 81 19 144/79 96 01/08/18 09:00 97.7 107 18 122/69 96 Intake and Output 01/08/18 01/09/18 19:00 07:00 Intake Total 535 ml 240 ml Balance 535 ml 240 ml Intake Oral 480 ml 240 ml IV Total 55 ml # Voids 3 # Bowel Movements 1 General Appearance: no acute distress, other - awake, alert, obese female in NAD Respiratory/Chest: chest wall non-tender, no accessory muscle use, other - coarse BS, but no wheezes Cardiovascular: normal peripheral pulses, normal rate, no JVD Abdomen: normal bowel sounds, soft, non tender, non distended Extremities: no edema, pedal pulses normal Neurologic/Psychiatric: no motor/sensory deficits, alert, oriented x 3, responsive Musculoskeletal: normal muscle bulk Microbiology Date/Time Source Procedure Growth Status 01/06/18 17:30 Sputum Gram Stain - Final Complete 01/06/18 17:30 Sputum Sputum Culture - Final NORMAL UPPER RESPIRATORY JONNY PRESENT Complete Laboratory Tests 01/09/18 05:45: White Blood Count 12.6H, Red Blood Count 4.21, Hemoglobin 12.4, Hematocrit 36.8L , Mean Corpuscular Volume 87, Mean Corpuscular Hemoglobin 29.4, Mean Corpuscular Hemoglobin Concent 33.6, Red Cell Distribution Width 12.9, Platelet Count 267, Mean Platelet Volume 8.8, Neutrophils (%) (Auto) 67.2, Lymphocytes (% ) (Auto) 26.1, Monocytes (%) (Auto) 6.4, Eosinophils (%) (Auto) 0.0, Basophils ( %) (Auto) 0.3, Sodium Level 140, Potassium Level 3.4L, Chloride Level 105, Carbon Dioxide Level 27, Anion Gap 8, Blood Urea Nitrogen 19H, Creatinine 0.9, Estimat Glomerular Filtration Rate > 60, Glucose Level 82, Calcium Level 8.4L Current Medications Medications (Trade) Dose Ordered Sig/Gabrielel Route PRN Reason Start Time Stop Time Status Last Admin Dose Admin Albuterol/ Ipratropium (Albuterol/ Ipratropium) 3 ml Q4H PRN HHN dyspnea 01/06/18 07:00 01/11/18 06:59 Azithromycin (Zithromax) 250 mg DAILY@1600 ORAL 01/08/18 16:00 01/15/18 23:59 01/08/18 15:58 Ceftriaxone Sodium 1 gm/ Sodium Chloride 55 ml @ 110 mls/hr Q24H IVPB 01/07/18 17:00 01/14/18 23:59 01/08/18 16:00 Clonidine HCl (Catapres Tab) 0.1 mg EVERY 6 HOURS PRN ORAL SBP > 160 01/07/18 08:39 02/06/18 08:38 01/07/18 08:44 Dextrose (Dextrose 50%) STAT PRN IV Hypoglycemia 01/06/18 07:00 02/05/18 06:59 Heparin Sodium (Porcine) (Heparin 5000 units/ml) 5,000 units EVERY 12 HOURS SUBQ 01/06/18 09:00 02/05/18 08:59 01/08/18 21:07 Ketorolac Tromethamine (Toradol 30mg) 30 mg Q8H PRN IV moderate pain 4-6 01/06/18 07:00 01/11/18 06:59 Lorazepam (Ativan 2mg/ml 1ml) 0.5 mg Q4H PRN IV For Anxiety 01/06/18 07:00 01/13/18 06:59 Methylprednisolone Sodium Succinate (Solu-MEDROL) 60 mg DAILY IV 01/09/18 09:00 02/05/18 08:59 Morphine Sulfate (Morphine Sulfate) 2 mg Q4H PRN IVP severe pain 7-10 01/06/18 07:00 01/13/18 06:59 Nitroglycerin (Ntg) 0.4 mg Q5M X 3 DOSES PRN SL Prn Chest Pain 01/06/18 07:00 02/05/18 06:59 Ondansetron HCl (Zofran) 4 mg Q6H PRN IVP Nausea & Vomiting 01/06/18 07:00 02/05/18 06:59 Promethazine HCl/ Codeine (Phenergan with Codeine) 5 ml Q6H PRN ORAL cough 01/06/18 07:00 02/05/18 06:59 01/06/18 20:56 Temazepam (Restoril) 15 mg HSPRN PRN ORAL Insomnia 01/06/18 07:00 01/13/18 06:59 Theophylline (Magan-Dur) 100 mg EVERY 12 HOURS ORAL 01/06/18 09:00 02/05/18 08:59 01/08/18 21:04 [facility] SurgeryBrenda Hoyos NP Jan 09, 2018 08:19
[2018-01-09] MEDS: Solu-MEDROL 125mg Inj IV SCH (08:47)
[2018-01-09] MEDS: Theophylline ER 100mg ORAL SCH ×2 (08:47→21:05)
[2018-01-09] MEDS: Heparin 5000 units/ml inj SUBQ SCH ×2 (08:49→21:05)
[2018-01-09 12:00] VITALS: BP 157/84
--- NOTE | 2018-01-09 12:54 | Infectious Diseases Prog Note ---
Assessment/Plan Assessment/Plan A; COPD/Asthma exacerbation Leukocytosis, steroid related Bacteriuria Obesity P: Continue Zithromax & Rocephin X 1 day Subjective ROS Limited/Unobtainable: No Constitutional: Reports: no symptoms HEENT: Reports: no symptoms Respiratory: Reports: no symptoms Gastrointestinal/Abdominal: Reports: no symptoms Genitourinary: Reports: no symptoms Allergies: Coded Allergies: SULFA (SULFONAMIDE ANTIBIOTICS) (Verified Allergy, Unknown, 01/06/18) Objective Vital Signs Last 24 Hour Vital Signs Date Time Temp Pulse Resp B/P (MAP) Pulse Ox O2 Delivery O2 Flow Rate FiO2 01/09/18 12:00 97.5 83 20 157/84 93 01/09/18 11:32 98 Room Air 21 01/09/18 11:32 104 18 Room Air 21 01/09/18 08:00 97.3 99 18 151/83 96 01/09/18 03:24 98.2 78 20 131/68 93 Room Air 01/09/18 00:00 98.3 85 12 153/81 100 Room Air 01/08/18 20:00 98.3 80 20 148/75 100 Room Air 01/08/18 16:00 97.1 63 18 147/79 94 Height (Feet): 5 Height (Inches): 8.00 Weight (Pounds): 230 General Appearance: no acute distress HEENT: mucous membranes moist Respiratory/Chest: lungs clear Cardiovascular: normal rate Abdomen: soft, non tender Extremities: no edema Neurologic/Psychiatric: alert, oriented x 3, responsive Microbiology Date/Time Source Procedure Growth Status 01/06/18 17:30 Sputum Gram Stain - Final Complete 01/06/18 17:30 Sputum Sputum Culture - Final NORMAL UPPER RESPIRATORY JONNY PRESENT Complete Laboratory Tests Test 01/09/18 05:45 White Blood Count 12.6 K/UL (4.8-10.8) H Red Blood Count 4.21 M/UL (4.20-5.40) Hemoglobin 12.4 G/DL (12.0-16.0) Hematocrit 36.8 % (37.0-47.0) L Mean Corpuscular Volume 87 FL (80-99) Mean Corpuscular Hemoglobin 29.4 PG (27.0-31.0) Mean Corpuscular Hemoglobin Concent 33.6 G/DL (32.0-36.0) Red Cell Distribution Width 12.9 % (11.6-14.8) Platelet Count 267 K/UL (150-450) Mean Platelet Volume 8.8 FL (6.5-10.1) Neutrophils (%) (Auto) 67.2 % (45.0-75.0) Lymphocytes (%) (Auto) 26.1 % (20.0-45.0) Monocytes (%) (Auto) 6.4 % (1.0-10.0) Eosinophils (%) (Auto) 0.0 % (0.0-3.0) Basophils (%) (Auto) 0.3 % (0.0-2.0) Sodium Level 140 MMOL/L (136-145) Potassium Level 3.4 MMOL/L (3.5-5.1) L Chloride Level 105 MMOL/L (98-107) Carbon Dioxide Level 27 MMOL/L (21-32) Anion Gap 8 mmol/L (5-15) Blood Urea Nitrogen 19 mg/dL (7-18) H Creatinine 0.9 MG/DL (0.55-1.30) Estimat Glomerular Filtration Rate > 60 mL/min (>60) Glucose Level 82 MG/DL (74-106) Calcium Level 8.4 MG/DL (8.5-10.1) L Current Medications Medications (Trade) Dose Ordered Sig/Gabrielle Route PRN Reason Start Time Stop Time Status Last Admin Dose Admin Albuterol/ Ipratropium (Albuterol/ Ipratropium) 3 ml Q4H PRN HHN dyspnea 01/09/18 15:00 01/14/18 23:59 UNV Azithromycin (Zithromax) 250 mg DAILY@1600 ORAL 01/08/18 16:00 01/15/18 23:59 01/08/18 15:58 Benzonatate (Tessalon Perles) 100 mg THREE TIMES A DAY ORAL 01/09/18 13:00 02/08/18 12:59 UNV Ceftriaxone Sodium 1 gm/ Sodium Chloride 55 ml @ 110 mls/hr Q24H IVPB 01/07/18 17:00 01/14/18 23:59 01/08/18 16:00 Clonidine HCl (Catapres Tab) 0.1 mg EVERY 6 HOURS PRN ORAL SBP > 160 01/07/18 08:39 02/06/18 08:38 01/07/18 08:44 Dextrose (Dextrose 50%) STAT PRN IV Hypoglycemia 01/06/18 07:00 02/05/18 06:59 Heparin Sodium (Porcine) (Heparin 5000 units/ml) 5,000 units EVERY 12 HOURS SUBQ 01/06/18 09:00 02/05/18 08:59 01/09/18 08:49 Ketorolac Tromethamine (Toradol 30mg) 30 mg Q8H PRN IV moderate pain 4-6 01/06/18 07:00 01/11/18 06:59 Lorazepam (Ativan 2mg/ml 1ml) 0.5 mg Q4H PRN IV For Anxiety 01/06/18 07:00 01/13/18 06:59 Methylprednisolone Sodium Succinate (Solu-MEDROL) 60 mg DAILY IV 01/09/18 09:00 02/05/18 08:59 01/09/18 08:47 Morphine Sulfate (Morphine Sulfate) 2 mg Q4H PRN IVP severe pain 7-10 01/06/18 07:00 01/13/18 06:59 Nitroglycerin (Ntg) 0.4 mg Q5M X 3 DOSES PRN SL Prn Chest Pain 01/06/18 07:00 02/05/18 06:59 Ondansetron HCl (Zofran) 4 mg Q6H PRN IVP Nausea & Vomiting 01/06/18 07:00 02/05/18 06:59 Promethazine HCl/ Codeine (Phenergan with Codeine) 5 ml Q6H PRN ORAL cough 01/06/18 07:00 02/05/18 06:59 01/06/18 20:56 Temazepam (Restoril) 15 mg HSPRN PRN ORAL Insomnia 01/06/18 07:00 01/13/18 06:59 Theophylline (Magan-Dur) 100 mg EVERY 12 HOURS ORAL 01/06/18 09:00 02/05/18 08:59 01/09/18 08:47 DENNIS ROLLE Jan 09, 2018 12:54
[2018-01-09] MEDS ORDERED: Albuterol/Ipratropium 3ml neb HHN PRN (13:00)
[2018-01-09] MEDS: Benzonatate 100mg Perles ORAL SCH ×2 (13:10→17:02)
--- NOTE | 2018-01-09 13:36 | General Progress Note ---
Assessment/Plan Problem List: (1) COPD (chronic obstructive pulmonary disease) ICD Codes: J44.9 - Chronic obstructive pulmonary disease, unspecified SNOMED: 77502647 (2) OCD (obsessive compulsive disorder) ICD Codes: F42.9 - Obsessive-compulsive disorder, unspecified SNOMED: 790180248 (3) Pneumonia ICD Codes: J18.9 - Pneumonia, unspecified organism SNOMED: 046934528 (4) Bronchospasm ICD Codes: J98.01 - Acute bronchospasm SNOMED: 7873762 (5) Hypoxia ICD Codes: R09.02 - Hypoxemia SNOMED: 344346952 (6) UTI (urinary tract infection) ICD Codes: N39.0 - Urinary tract infection, site not specified SNOMED: 56405496 Qualifiers: Qualified Codes: N30.00 - Acute cystitis without hematuria (7) Elevated lactic acid level ICD Codes: R79.89 - Other specified abnormal findings of blood chemistry SNOMED: 8633741 Status: stable, progressing, tolerating diet Assessment/Plan o2 pulm tx abx cbc bmp am dc plan Subjective Constitutional: Reports: weakness Allergies: Coded Allergies: SULFA (SULFONAMIDE ANTIBIOTICS) (Verified Allergy, Unknown, 01/06/18) All Systems: reviewed and negative except above Subjective sl cough Objective Last 24 Hour Vital Signs Date Time Temp Pulse Resp B/P (MAP) Pulse Ox O2 Delivery O2 Flow Rate FiO2 01/09/18 12:00 97.5 83 20 157/84 93 01/09/18 11:32 98 Room Air 21 01/09/18 11:32 104 18 Room Air 21 01/09/18 08:00 97.3 99 18 151/83 96 01/09/18 03:24 98.2 78 20 131/68 93 Room Air 01/09/18 00:00 98.3 85 12 153/81 100 Room Air 01/08/18 20:00 98.3 80 20 148/75 100 Room Air 01/08/18 16:00 97.1 63 18 147/79 94 Intake and Output 01/08/18 01/09/18 19:00 07:00 Intake Total 535 ml 240 ml Balance 535 ml 240 ml Intake Oral 480 ml 240 ml IV Total 55 ml # Voids 3 # Bowel Movements 1 Laboratory Tests 01/09/18 05:45: White Blood Count 12.6H, Red Blood Count 4.21, Hemoglobin 12.4, Hematocrit 36.8L , Mean Corpuscular Volume 87, Mean Corpuscular Hemoglobin 29.4, Mean Corpuscular Hemoglobin Concent 33.6, Red Cell Distribution Width 12.9, Platelet Count 267, Mean Platelet Volume 8.8, Neutrophils (%) (Auto) 67.2, Lymphocytes (% ) (Auto) 26.1, Monocytes (%) (Auto) 6.4, Eosinophils (%) (Auto) 0.0, Basophils ( %) (Auto) 0.3, Sodium Level 140, Potassium Level 3.4L, Chloride Level 105, Carbon Dioxide Level 27, Anion Gap 8, Blood Urea Nitrogen 19H, Creatinine 0.9, Estimat Glomerular Filtration Rate > 60, Glucose Level 82, Calcium Level 8.4L Height (Feet): 5 Height (Inches): 8.00 Weight (Pounds): 230 General Appearance: alert EENT: normal ENT inspection Neck: normal alignment Cardiovascular: normal peripheral pulses, normal rate, regular rhythm Respiratory/Chest: chest wall non-tender, lungs clear, normal breath sounds Abdomen: normal bowel sounds, non tender, soft Extremities: normal inspection Edema: no edema noted Arm (L), no edema noted Arm (R), no edema noted Leg (L), no edema noted Leg (R), no edema noted Pedal (L), no edema noted Pedal (R), no edema noted Generalized Neurologic: responsive, motor weakness Skin: normal pigmentation, warm/dry RUDOLPH BUTLER Jan 09, 2018 13:36
[2018-01-09 15:56] VITALS: BP 147/97
[2018-01-09] MEDS ORDERED: NS 500ML ONE (16:18)
[2018-01-09] MEDS: Azithromycin 250mg tab ORAL SCH (16:29)
[2018-01-09] MEDS: cefTRIAXone 1 GM in NS 55 ML IVPB SCH (16:30)
[2018-01-10 00:06] VITALS: BP 165/85
[2018-01-10 03:57] VITALS: BP 156/95
[2018-01-10 06:54] LABS: ANION GAP 7 mmol/L (5-15); BLOOD UREA NITROGEN 16 mg/dL (7-18); CALCIUM 8.8 MG/DL (8.5-10.1); CARBON DIOXIDE 26 MMOL/L (21-32); CHLORIDE 103 MMOL/L (98-107); CREATININE 0.9 MG/DL (0.55-1.30); POTASSIUM 3.5 MMOL/L (3.5-5.1); SODIUM 136 MMOL/L (136-145)
[2018-01-10 07:22] LABS: BASOPHILS % (AUTO) 0.4 % (0.0-2.0); EOSINOPHILS % (AUTO) 0.1 % (0.0-3.0); HEMATOCRIT 38.8 % (37.0-47.0); HEMOGLOBIN 12.7 G/DL (12.0-16.0); MEAN CORPUSCULAR VOLUME 88 FL (80-99); MONOCYTES % (AUTO) 6.3 % (1.0-10.0); NEUTROPHILS % (AUTO) 62.3 % (45.0-75.0); PLATELET COUNT 299 K/UL (150-450); RED BLOOD COUNT 4.43 M/UL (4.20-5.40); RED CELL DISTRIBUTION WIDTH 12.4 % (11.6-14.8); WHITE BLOOD COUNT 12.1 K/UL (4.8-10.8)
--- NOTE | 2018-01-10 07:57 | Pulmonology Progress Note ---
Assessment/Plan Assessment/Plan ASSESSMENT acute COPD exacerbation with bronchospam -resolved likely pneumonitis ( no PNA-CXR negative) bacteriuria lactic acidosis hypoxia-initially, resolved in ED Leukocytosis, steroid induced obesity PLAN OF CARE MS floor O2 HHN prn CXR negative empiric abx ID follows, abx dc as per ID no further need Sputum cx and blood cx negative, urine cx +Proteus, GPO, no urinary complaints IV steroids and taper , theophylline continue a/tussive prn and add Tessalon possibly hypersensitivity pneumonitis ( happened after repairs in the building ) DVT prophylaxis leukocytosis likely steroid induced, afebrile dc today script for Medrol dose pack, a/tussive and ProAir provided case discussed and evaluated by supervising physician Subjective Allergies: Coded Allergies: SULFA (SULFONAMIDE ANTIBIOTICS) (Verified Allergy, Unknown, 01/06/18) Subjective leucocytosis trending down,afebrile pulse ox stable on RA feeling better wheezing almost resolved denies CP, SOB Objective Last 24 Hour Vital Signs Date Time Temp Pulse Resp B/P (MAP) Pulse Ox O2 Delivery O2 Flow Rate FiO2 01/10/18 03:57 97.7 86 24 156/95 94 01/10/18 03:57 94 Room Air 01/10/18 00:06 97.7 78 24 165/85 94 01/10/18 00:06 94 Room Air 01/09/18 20:25 94 Room Air 01/09/18 20:25 97.6 99 24 94 01/09/18 19:30 Room Air 01/09/18 19:30 98 20 Room Air 21 01/09/18 17:29 21 01/09/18 17:29 110 24 98 Room Air 21 01/09/18 17:08 112 24 98 Room Air 21 01/09/18 15:56 98.2 118 20 147/97 94 01/09/18 12:00 97.5 83 20 157/84 93 01/09/18 11:32 98 Room Air 21 01/09/18 11:32 104 18 Room Air 21 01/09/18 08:00 97.3 99 18 151/83 96 Intake and Output 01/09/18 01/10/18 19:00 07:00 Intake Total 535 ml Balance 535 ml Intake Oral 480 ml IV Total 55 ml # Voids 3 3 Objective General Appearance: no acute distress, awake, alert, obese female in NAD Respiratory/Chest: chest wall non-tender, no accessory muscle use, few isolated wheezes Cardiovascular: normal peripheral pulses, normal rate, no JVD Abdomen: normal bowel sounds, soft, non tender, obese Extremities: no edema, pedal pulses normal Neurologic/Psychiatric: no motor/sensory deficits, alert, oriented x 3, responsive Musculoskeletal: normal muscle bulk Laboratory Tests 01/10/18 05:35: White Blood Count 12.1H, Red Blood Count 4.43, Hemoglobin 12.7, Hematocrit 38.8 , Mean Corpuscular Volume 88, Mean Corpuscular Hemoglobin 28.8, Mean Corpuscular Hemoglobin Concent 32.9, Red Cell Distribution Width 12.4, Platelet Count 299, Mean Platelet Volume 8.9, Neutrophils (%) (Auto) 62.3, Lymphocytes (% ) (Auto) 31.0, Monocytes (%) (Auto) 6.3, Eosinophils (%) (Auto) 0.1, Basophils ( %) (Auto) 0.4, Sodium Level 136, Potassium Level 3.5, Chloride Level 103, Carbon Dioxide Level 26, Anion Gap 7, Blood Urea Nitrogen 16, Creatinine 0.9, Estimat Glomerular Filtration Rate > 60, Glucose Level 79, Calcium Level 8.8, Magnesium Level 2.3 Current Medications Medications (Trade) Dose Ordered Sig/Gabrielle Route PRN Reason Start Time Stop Time Status Last Admin Dose Admin Albuterol/ Ipratropium (Albuterol/ Ipratropium) 3 ml Q4H PRN HHN dyspnea 01/09/18 13:00 01/14/18 12:59 01/09/18 17:08 Azithromycin (Zithromax) 250 mg DAILY@1600 ORAL 01/08/18 16:00 01/15/18 23:59 01/09/18 16:29 Benzonatate (Tessalon Perles) 100 mg THREE TIMES A DAY ORAL 01/09/18 13:00 02/08/18 12:59 01/09/18 17:02 Ceftriaxone Sodium 1 gm/ Sodium Chloride 55 ml @ 110 mls/hr Q24H IVPB 01/07/18 17:00 01/14/18 23:59 01/09/18 16:30 Clonidine HCl (Catapres Tab) 0.1 mg EVERY 6 HOURS PRN ORAL SBP > 160 01/07/18 08:39 02/06/18 08:38 01/07/18 08:44 Dextrose (Dextrose 50%) STAT PRN IV Hypoglycemia 01/06/18 07:00 02/05/18 06:59 Heparin Sodium (Porcine) (Heparin 5000 units/ml) 5,000 units EVERY 12 HOURS SUBQ 01/06/18 09:00 02/05/18 08:59 01/09/18 21:05 Ketorolac Tromethamine (Toradol 30mg) 30 mg Q8H PRN IV moderate pain 4-6 01/06/18 07:00 01/11/18 06:59 Lorazepam (Ativan 2mg/ml 1ml) 0.5 mg Q4H PRN IV For Anxiety 01/06/18 07:00 01/13/18 06:59 Methylprednisolone Sodium Succinate (Solu-MEDROL) 60 mg DAILY IV 01/09/18 09:00 02/05/18 08:59 01/09/18 08:47 Morphine Sulfate (Morphine Sulfate) 2 mg Q4H PRN IVP severe pain 7-10 01/06/18 07:00 01/13/18 06:59 Nitroglycerin (Ntg) 0.4 mg Q5M X 3 DOSES PRN SL Prn Chest Pain 01/06/18 07:00 02/05/18 06:59 Ondansetron HCl (Zofran) 4 mg Q6H PRN IVP Nausea & Vomiting 01/06/18 07:00 02/05/18 06:59 Promethazine HCl/ Codeine (Phenergan with Codeine) 5 ml Q6H PRN ORAL cough 01/06/18 07:00 02/05/18 06:59 01/06/18 20:56 Temazepam (Restoril) 15 mg HSPRN PRN ORAL Insomnia 01/06/18 07:00 01/13/18 06:59 Theophylline (Magan-Dur) 100 mg EVERY 12 HOURS ORAL 01/06/18 09:00 02/05/18 08:59 01/09/18 21:05 Hor[facility]Edge[facility] HospitalBrenda Hoyos NP Jan 10, 2018 07:57
[2018-01-10 08:00] VITALS: BP 139/70
--- NOTE | 2018-01-10 08:39 | General Progress Note ---
Assessment/Plan Problem List: (1) COPD (chronic obstructive pulmonary disease) ICD Codes: J44.9 - Chronic obstructive pulmonary disease, unspecified SNOMED: 45960415 (2) OCD (obsessive compulsive disorder) ICD Codes: F42.9 - Obsessive-compulsive disorder, unspecified SNOMED: 010376960 (3) Pneumonia ICD Codes: J18.9 - Pneumonia, unspecified organism SNOMED: 485376130 (4) Bronchospasm ICD Codes: J98.01 - Acute bronchospasm SNOMED: 0942867 (5) Hypoxia ICD Codes: R09.02 - Hypoxemia SNOMED: 985713237 (6) UTI (urinary tract infection) ICD Codes: N39.0 - Urinary tract infection, site not specified SNOMED: 81541464 Qualifiers: Qualified Codes: N30.00 - Acute cystitis without hematuria (7) Elevated lactic acid level ICD Codes: R79.89 - Other specified abnormal findings of blood chemistry SNOMED: 9474336 Status: stable, progressing, tolerating diet Assessment/Plan o2 pulm tx abx dc if clear Subjective Constitutional: Reports: weakness Allergies: Coded Allergies: SULFA (SULFONAMIDE ANTIBIOTICS) (Verified Allergy, Unknown, 01/06/18) All Systems: reviewed and negative except above Subjective sl cough Objective Last 24 Hour Vital Signs Date Time Temp Pulse Resp B/P (MAP) Pulse Ox O2 Delivery O2 Flow Rate FiO2 01/10/18 08:00 97.2 100 20 139/70 97 01/10/18 07:51 101 20 Room Air 21 01/10/18 03:57 97.7 86 24 156/95 94 01/10/18 03:57 94 Room Air 01/10/18 00:06 97.7 78 24 165/85 94 01/10/18 00:06 94 Room Air 01/09/18 20:25 94 Room Air 01/09/18 20:25 97.6 99 24 94 01/09/18 19:30 Room Air 01/09/18 19:30 98 20 Room Air 21 01/09/18 17:29 21 01/09/18 17:29 110 24 98 Room Air 21 01/09/18 17:08 112 24 98 Room Air 21 01/09/18 15:56 98.2 118 20 147/97 94 01/09/18 12:00 97.5 83 20 157/84 93 01/09/18 11:32 98 Room Air 21 01/09/18 11:32 104 18 Room Air 21 Intake and Output 01/09/18 01/10/18 19:00 07:00 Intake Total 535 ml Balance 535 ml Intake Oral 480 ml IV Total 55 ml # Voids 3 3 Laboratory Tests 01/10/18 05:35: White Blood Count 12.1H, Red Blood Count 4.43, Hemoglobin 12.7, Hematocrit 38.8 , Mean Corpuscular Volume 88, Mean Corpuscular Hemoglobin 28.8, Mean Corpuscular Hemoglobin Concent 32.9, Red Cell Distribution Width 12.4, Platelet Count 299, Mean Platelet Volume 8.9, Neutrophils (%) (Auto) 62.3, Lymphocytes (% ) (Auto) 31.0, Monocytes (%) (Auto) 6.3, Eosinophils (%) (Auto) 0.1, Basophils ( %) (Auto) 0.4, Sodium Level 136, Potassium Level 3.5, Chloride Level 103, Carbon Dioxide Level 26, Anion Gap 7, Blood Urea Nitrogen 16, Creatinine 0.9, Estimat Glomerular Filtration Rate > 60, Glucose Level 79, Calcium Level 8.8, Magnesium Level 2.3 Height (Feet): 5 Height (Inches): 8.00 Weight (Pounds): 230 General Appearance: lethargic EENT: normal ENT inspection Neck: normal alignment Cardiovascular: normal peripheral pulses, normal rate, regular rhythm Respiratory/Chest: chest wall non-tender, lungs clear, normal breath sounds Abdomen: normal bowel sounds, non tender, soft Extremities: normal inspection Edema: no edema noted Arm (L), no edema noted Arm (R), no edema noted Leg (L), no edema noted Leg (R), no edema noted Pedal (L), no edema noted Pedal (R), no edema noted Generalized Neurologic: responsive, motor weakness Skin: normal pigmentation, warm/dry RUDOLPH BUTLER Jan 10, 2018 08:39
[2018-01-10] MEDS: Solu-MEDROL 125mg Inj IV SCH (09:18)
[2018-01-10] MEDS: Theophylline ER 100mg ORAL SCH (09:19)
[2018-01-10] MEDS: Benzonatate 100mg Perles ORAL SCH ×2 (09:19→13:24)
[2018-01-10] MEDS: Heparin 5000 units/ml inj SUBQ SCH (09:20)
[2018-01-10] MEDS ORDERED: Morphine Sulfate 4mg/ml Inj IVP PRN (11:15)
[2018-01-10 11:40] VITALS: BP 132/82
--- NOTE | 2018-01-10 12:17 | Infectious Diseases Prog Note ---
Assessment/Plan Assessment/Plan A; COPD/Asthma exacerbation Leukocytosis, steroid related Bacteriuria Obesity P: discontinue Zithromax & Rocephin agree with discharge to home Subjective ROS Limited/Unobtainable: No Respiratory: Reports: other - wheez with walking Gastrointestinal/Abdominal: Reports: diarrhea Genitourinary: Reports: no symptoms Allergies: Coded Allergies: SULFA (SULFONAMIDE ANTIBIOTICS) (Verified Allergy, Unknown, 01/06/18) Objective Vital Signs Last 24 Hour Vital Signs Date Time Temp Pulse Resp B/P (MAP) Pulse Ox O2 Delivery O2 Flow Rate FiO2 01/10/18 11:40 97.9 85 20 132/82 93 01/10/18 08:00 97.2 100 20 139/70 97 01/10/18 07:51 101 20 Room Air 21 01/10/18 03:57 97.7 86 24 156/95 94 01/10/18 03:57 94 Room Air 01/10/18 00:06 97.7 78 24 165/85 94 01/10/18 00:06 94 Room Air 01/09/18 20:25 94 Room Air 01/09/18 20:25 97.6 99 24 94 01/09/18 19:30 Room Air 01/09/18 19:30 98 20 Room Air 21 01/09/18 17:29 21 01/09/18 17:29 110 24 98 Room Air 21 01/09/18 17:08 112 24 98 Room Air 21 01/09/18 15:56 98.2 118 20 147/97 94 Height (Feet): 5 Height (Inches): 8.00 Weight (Pounds): 230 HEENT: mucous membranes moist Respiratory/Chest: lungs clear Cardiovascular: normal rate Abdomen: soft, non tender Extremities: no edema Neurologic/Psychiatric: alert, oriented x 3, responsive Laboratory Tests Test 01/10/18 05:35 White Blood Count 12.1 K/UL (4.8-10.8) H Red Blood Count 4.43 M/UL (4.20-5.40) Hemoglobin 12.7 G/DL (12.0-16.0) Hematocrit 38.8 % (37.0-47.0) Mean Corpuscular Volume 88 FL (80-99) Mean Corpuscular Hemoglobin 28.8 PG (27.0-31.0) Mean Corpuscular Hemoglobin Concent 32.9 G/DL (32.0-36.0) Red Cell Distribution Width 12.4 % (11.6-14.8) Platelet Count 299 K/UL (150-450) Mean Platelet Volume 8.9 FL (6.5-10.1) Neutrophils (%) (Auto) 62.3 % (45.0-75.0) Lymphocytes (%) (Auto) 31.0 % (20.0-45.0) Monocytes (%) (Auto) 6.3 % (1.0-10.0) Eosinophils (%) (Auto) 0.1 % (0.0-3.0) Basophils (%) (Auto) 0.4 % (0.0-2.0) Sodium Level 136 MMOL/L (136-145) Potassium Level 3.5 MMOL/L (3.5-5.1) Chloride Level 103 MMOL/L (98-107) Carbon Dioxide Level 26 MMOL/L (21-32) Anion Gap 7 mmol/L (5-15) Blood Urea Nitrogen 16 mg/dL (7-18) Creatinine 0.9 MG/DL (0.55-1.30) Estimat Glomerular Filtration Rate > 60 mL/min (>60) Glucose Level 79 MG/DL (74-106) Calcium Level 8.8 MG/DL (8.5-10.1) Magnesium Level 2.3 MG/DL (1.8-2.4) Current Medications Medications (Trade) Dose Ordered Sig/Gabrielle Route PRN Reason Start Time Stop Time Status Last Admin Dose Admin Albuterol/ Ipratropium (Albuterol/ Ipratropium) 3 ml Q4H PRN HHN dyspnea 01/09/18 13:00 01/14/18 12:59 01/09/18 17:08 Azithromycin (Zithromax) 250 mg DAILY@1600 ORAL 01/08/18 16:00 01/15/18 23:59 01/09/18 16:29 Benzonatate (Tessalon Perles) 100 mg THREE TIMES A DAY ORAL 01/09/18 13:00 02/08/18 12:59 01/10/18 09:19 Ceftriaxone Sodium 1 gm/ Sodium Chloride 55 ml @ 110 mls/hr Q24H IVPB 01/07/18 17:00 01/14/18 23:59 01/09/18 16:30 Clonidine HCl (Catapres Tab) 0.1 mg EVERY 6 HOURS PRN ORAL SBP > 160 01/07/18 08:39 02/06/18 08:38 01/07/18 08:44 Dextrose (Dextrose 50%) STAT PRN IV Hypoglycemia 01/06/18 07:00 02/05/18 06:59 Heparin Sodium (Porcine) (Heparin 5000 units/ml) 5,000 units EVERY 12 HOURS SUBQ 01/06/18 09:00 02/05/18 08:59 01/10/18 09:20 Ketorolac Tromethamine (Toradol 30mg) 30 mg Q8H PRN IV moderate pain 4-6 01/06/18 07:00 01/11/18 06:59 Lorazepam (Ativan 2mg/ml 1ml) 0.5 mg Q4H PRN IV For Anxiety 01/06/18 07:00 01/13/18 06:59 Methylprednisolone Sodium Succinate (Solu-MEDROL) 60 mg DAILY IV 01/09/18 09:00 02/05/18 08:59 01/10/18 09:18 Morphine Sulfate (Morphine Sulfate) 2 mg Q4H PRN IVP severe pain 7-10 01/10/18 11:15 01/13/18 06:59 Nitroglycerin (Ntg) 0.4 mg Q5M X 3 DOSES PRN SL Prn Chest Pain 01/06/18 07:00 02/05/18 06:59 Ondansetron HCl (Zofran) 4 mg Q6H PRN IVP Nausea & Vomiting 01/06/18 07:00 02/05/18 06:59 Promethazine HCl/ Codeine (Phenergan with Codeine) 5 ml Q6H PRN ORAL cough 01/06/18 07:00 02/05/18 06:59 01/06/18 20:56 Temazepam (Restoril) 15 mg HSPRN PRN ORAL Insomnia 01/06/18 07:00 01/13/18 06:59 Theophylline (Magan-Dur) 100 mg EVERY 12 HOURS ORAL 01/06/18 09:00 02/05/18 08:59 01/10/18 09:19 DENNIS ROLLE Jan 10, 2018 12:17
[2018-01-10] MEDS ORDERED: PROAIR HFA8.5 GM INH (13:18)
[2018-01-10] MEDS ORDERED: TESSALON PERLE100 M2 ORAL (13:18)
[2018-01-10] MEDS ORDERED: MEDROL4 MG ORAL (13:20)
--- NOTE | 2018-01-13 13:09 | Discharge Summary ---
Discharge Summary Hospital Course Date of Admission Jan 06, 2018 at 02:52 Date of Discharge Jan 10, 2018 at 13:45 Admitting Diagnosis pneumonia/copd/hypoxia HPI Ewelina Warren is a 52 year old female who was admitted on Jan 06, 2018 at 02: 52 for Pneumonia/Chronic Obstructive Pulmonary Disease Hospital Course DC SUMMARY #[id number] Discharge Medications New Medications: Methylprednisolone* (Medrol*) 4 Mg Tablet 4 MG ORAL DAILY, #10 TAB 0 Refills Continued Medications: Albuterol Sulfate* (Proair Hfa*) 8.5 Gm Hfa.aer.ad 1 PUFF INH Q6H PRN for Shortness of Breath, #8.5 GM 0 Refills Discharge Condition Upon Discharge: stable Discharge Disposition Patient was discharged to Home () Discharge Diagnoses: Horace (Bud)Brenda NP Jan 13, 2018 13:09
--- NOTE | 2018-01-13 21:00 | Discharge Summary 2 SIG ---
DATE OF ADMISSION: 01/06/2018 DATE OF DISCHARGE: 01/10/2018 REASON FOR ADMISSION: 52-year-old female with past medical history of hypertension, asthma, anxiety, presented to emergency department complaining of dyspnea, cough, and congestion. She was found to be hypoxic. Lactic acid was elevated. No fever. Urinalysis with evidence of UTI. Chest x-ray with possible right middle lobe infiltrate. The patient was admitted with diagnoses of hypoxemia, bronchospasm, urinary tract infection, pneumonia, and elevated lactic acid. HOSPITAL COURSE: The patient admitted. The patient started on IV steroids, which gradually tapered down as permitted. The patient started on empiric antibiotics. ID and Pulmonology consults were requested. Chest x-ray after careful review showed no negative findings. Sputum culture was negative. Blood culture was negative. Urine culture revealed Proteus and mixed gram-positive organism. The patient had no urinary complaints. According to ID specialist, no UTI, just asymptomatic bacteriuria. The patient was treated with empiric antibiotic, which were discontinued prior to discharge. Mild leukocytosis likely steroid related. IV steroids were gradually tapered down and change to oral upon discharge. The patient was started initially on trial of theophylline. Antitussive provided as needed along with Tessalon. The patient possibly had hypersensitivity pneumonitis because the symptoms started after repairs in the building. DVT prophylaxis provided. Wound care provided as per wound nurse recommendations. The patient was stable for discharge home. Followup with the primary care provider in one week. FINAL DIAGNOSES: 1. Acute chronic obstructive pulmonary disease exacerbation with bronchospasm, resolved. 2. Likely pneumonitis. 3. Bacteriuria. 4. Lactic acidosis. 5. Hypoxemia initially,- resolved. 6. Leukocytosis, steroid induced. 7. Obesity. 8. Coccyx deep tissue injury ulcer, present on admission. DISCHARGE MEDICATIONS: See medication reconciliation list. Prescription provided for Medrol Dosepak, antitussive, and rescue inhaler. DISCHARGE INSTRUCTIONS: The patient discharged home. Followup with the primary care provider next week. Seymour Balderrama D.O. Brenda MayaUpstate University HospitalTony Hoyos DR: PE[place] JOB#: [id number] CC: OALF
== END 2018-01-10 13:45 | disposition home or self-care (01) | DRG 140 ==
LOC: EDBD 01:02 → EMR 01:05 → 4W 02:52 → EDBEDREQ 03:30
DX: J44.1 Chronic obstructive pulmonary disease with (acute) exacerbation (principal); J18.9 Pneumonia, unspecified organism; E87.2 Acidosis; J45.901 Unspecified asthma with (acute) exacerbation; J44.0 Chronic obstructive pulmonary disease with (acute) lower respiratory infection; F41.9 Anxiety disorder, unspecified; E87.6 Hypokalemia; F42.9 Obsessive-compulsive disorder, unspecified; D72.829 Elevated white blood cell count, unspecified; R09.02 Hypoxemia; I10 Essential (primary) hypertension; R82.71 Bacteriuria; E66.9 Obesity, unspecified; Z68.35 Body mass index [BMI] 35.0-35.9, adult; T38.0X5A Adverse effect of glucocorticoids and synthetic analogues, initial encounter; Y92.89 Other specified places as the place of occurrence of the external cause; Z88.2 Allergy status to sulfonamides
CPT/HCPCS: 36415; 71045; 80048; 80053; 81003; 83605; 83735; 83880; 84100; 85007; 85025; 85610; 85651; 85730; 86140; 86710; 87040; 87070; 87086; 87181; 87205; 93005; 94640; 94664; 94760; 99285; J7620; J8499

== ENCOUNTER 2018-02-24 10:09 | Inpatient (IN) | payer SELFPAY ==
[~2018-02-24] VITALS: Ht 172.7 cm; Wt 127.0 kg
[~2018-02-24 10:09] MED LIST: MEDROL4 MG ORAL; PROAIR HFA8.5 GM INH; TESSALON PERLE100 M2 ORAL
[2018-02-24] MEDS ORDERED: NKM (10:14)
[2018-02-24] MEDS ORDERED: Sodium Chloride 500ML 500 ML IV ONE (10:33)
[2018-02-24 11:13] LABS: BASOPHILS % (AUTO) 0.7 % (0.0-2.0); EOSINOPHILS % (AUTO) 2.9 % (0.0-3.0); HEMOGLOBIN 12.3 G/DL (12.0-16.0); LYMPHOCYTES % (AUTO) 19.2 % (20.0-45.0); MEAN CORPUSCULAR VOLUME 86 FL (80-99); MONOCYTES % (AUTO) 5.2 % (1.0-10.0); PLATELET COUNT 216 K/UL (150-450); RED BLOOD COUNT 4.17 M/UL (4.20-5.40); WHITE BLOOD COUNT 8.8 K/UL (4.8-10.8)
[2018-02-24 11:28] LABS: ANION GAP 5 mmol/L (5-15); BLOOD UREA NITROGEN 10 mg/dL (7-18); CALCIUM 8.4 MG/DL (8.5-10.1); CARBON DIOXIDE 30 MMOL/L (21-32); CHLORIDE 106 MMOL/L (98-107); CREATININE 0.8 MG/DL (0.55-1.30); POTASSIUM 3.7 MMOL/L (3.5-5.1); SODIUM 141 MMOL/L (136-145)
[2018-02-24 11:37] LABS: ALANINE AMINOTRANSFERASE 17 U/L (12-78); ALBUMIN 3.2 G/DL (3.4-5.0); ALBUMIN/GLOBULIN RATIO 0.9 (1.0-2.7); ALKALINE PHOSPHATASE 73 U/L (46-116); ASPARTATE AMINO TRANSFERASE 15 U/L (15-37); BILIRUBIN,TOTAL 0.4 MG/DL (0.2-1.0); CKMB 0.5 NG/ML (0.0-3.6); CREATINE KINASE 49 U/L (26-308)
[2018-02-24 11:47] VITALS: BP 149/77
--- NOTE | 2018-02-24 12:38 | Diagnostic Imaging Report ---
Indication: Chest pain Technique: One view of the chest Comparison: To 11/13/2018 Findings: Lungs and pleural spaces are clear. Heart size is upper limits normal. No significant interim change Impression: No acute process
--- NOTE | 2018-02-24 13:00 | Emergency Room Report ---
History of Present Illness General Chief Complaint: Chest Pain Source: Patient Present Illness HPI 52-year-old female presents ED for evaluation. Patient complaining of chest pain which started this morning at rest. Left-sided, pressure-like, 5 out of 10 , nonradiating. Lasted for several minutes then resolved. Denies any chest pain at this time. History of hypertension. Denies smoking or drug use. Does admit to history of anxiety. No other aggravating or relieving factors. Denies any other associated symptoms Allergies: Coded Allergies: SULFA (SULFONAMIDE ANTIBIOTICS) (Verified Allergy, Unknown, 01/06/18) Patient History Past Medical History: HTN, asthma Past Surgical History: none Pertinent Family History: none Social History: Denies: smoking, alcohol use, drug use Now: No Immunizations: UTD Reviewed Nursing Documentation: PMH: Agreed; PSxH: Agreed Nursing Documentation-PMH Hx Hypertension: Yes Hx Asthma: Yes Hx Cancer: No Hx Gastrointestinal Problems: No Hx Neurological Problems: No Review of Systems All Other Systems: negative except mentioned in HPI Physical Exam Vital Signs Date Time Temp Pulse Resp B/P (MAP) Pulse Ox O2 Delivery O2 Flow Rate FiO2 02/24/18 10:12 97.3 92 20 162/91 100 Room Air 97.3 Sp02 EP Interpretation: reviewed, normal General Appearance: no apparent distress, alert, GCS 15, non-toxic Head: normocephalic, atraumatic Eyes: bilateral eye normal inspection, bilateral eye PERRL ENT: hearing grossly normal, normal pharynx, no angioedema, normal voice Neck: full range of motion, supple/symm/no masses Respiratory: chest non-tender, lungs clear, normal breath sounds, speaking full sentences Cardiovascular #1: regular rate, rhythm, no edema Cardiovascular #2: 2+ carotid (R), 2+ carotid (L), 2+ radial (R), 2+ radial (L) , 2+ dorsalis pedis (R), 2+ dorsalis pedis (L) Gastrointestinal: normal bowel sounds, non tender, soft, non-distended, no guarding, no rebound Rectal: deferred Genitourinary: normal inspection, no CVA tenderness Musculoskeletal: back normal, gait/station normal, normal range of motion, non- tender Neurologic: alert, oriented x3, responsive, motor strength/tone normal, sensory intact, speech normal Psychiatric: judgement/insight normal, memory normal, mood/affect normal, no suicidal/homicidal ideation Reflexes: 3+ bicep (R), 3+ bicep (L), 3+ tricep (R), 3+ tricep (L), 3+ knee (R) , 3+ knee (L) Skin: normal color, no rash, warm/dry, well hydrated Lymphatic: no adenopathy Medical Decision Making Diagnostic Impression: Primary Impression: ACS (acute coronary syndrome) ER Course Hospital Course 52-year-old female presents ED complaining of left-sided chest pain Differential diagnoses include: NE/unstable angina, contusion, muscle strain, PTX, rib fracture Clinical course Patient placed on stretcher. on monitoring and evaluation advisor. After initial history and physical I ordered labs, EKG, chest x-ray Patient does not have chest pain at this time. Declined pain meds labs reviewed- no leukocytosis, hemoglobin/hematocrit stable, electrolytes okay , troponins negative EKGnormal sinus rhythm no acute ischemic changes interpreted by me Chest x-ray- unremarkable Discussed findings with patient. Given presentation and risk factors we will admit for ACS rule out given aspirin. Case discussed with Dr. Ponce and he agreed to accept the patient to his service for further care and support I. I feel this is a highly complex case requiring extensive working including EKG/Rhythm strip, Xray/CT/US, Blood/urine lab work, repeat exams while in ED, and administration of strong opiates/narcotics for pain control, admission to hospital or close patient follow up. Diagnosis - ACS admitted to telemetry in serious condition Labs Test 02/24/18 10:45 White Blood Count 8.8 K/UL (4.8-10.8) Red Blood Count 4.17 M/UL (4.20-5.40) Hemoglobin 12.3 G/DL (12.0-16.0) Hematocrit 36.0 % (37.0-47.0) Mean Corpuscular Volume 86 FL (80-99) Mean Corpuscular Hemoglobin 29.4 PG (27.0-31.0) Mean Corpuscular Hemoglobin Concent 34.1 G/DL (32.0-36.0) Red Cell Distribution Width 13.0 % (11.6-14.8) Platelet Count 216 K/UL (150-450) Mean Platelet Volume 9.4 FL (6.5-10.1) Neutrophils (%) (Auto) 72.0 % (45.0-75.0) Lymphocytes (%) (Auto) 19.2 % (20.0-45.0) Monocytes (%) (Auto) 5.2 % (1.0-10.0) Eosinophils (%) (Auto) 2.9 % (0.0-3.0) Basophils (%) (Auto) 0.7 % (0.0-2.0) Sodium Level 141 MMOL/L (136-145) Potassium Level 3.7 MMOL/L (3.5-5.1) Chloride Level 106 MMOL/L (98-107) Carbon Dioxide Level 30 MMOL/L (21-32) Anion Gap 5 mmol/L (5-15) Blood Urea Nitrogen 10 mg/dL (7-18) Creatinine 0.8 MG/DL (0.55-1.30) Estimat Glomerular Filtration Rate > 60 mL/min (>60) Glucose Level 105 MG/DL (74-106) Calcium Level 8.4 MG/DL (8.5-10.1) Total Bilirubin 0.4 MG/DL (0.2-1.0) Aspartate Amino Transf (AST/SGOT) 15 U/L (15-37) Alanine Aminotransferase (ALT/SGPT) 17 U/L (12-78) Alkaline Phosphatase 73 U/L (46-116) Total Creatine Kinase 49 U/L (26-308) Creatine Kinase MB 0.5 NG/ML (0.0-3.6) Creatine Kinase MB Relative Index 1.0 Troponin I 0.000 ng/mL (0.000-0.056) Pro-B-Type Natriuretic Peptide 35 pg/mL (0-125) Total Protein 6.8 G/DL (6.4-8.2) Albumin 3.2 G/DL (3.4-5.0) Globulin 3.6 g/dL Albumin/Globulin Ratio 0.9 (1.0-2.7) EKG Diagnostic Results Rate: normal Rhythm: NSR ST Segments: no acute changes ASA given to the pt in ED: Yes Rhythm Strip Diag. Results EP Interpretation: yes Rhythm: NSR, no PVC's, no ectopy Chest X-Ray Diagnostic Results Chest X-Ray Diagnostic Results : Chest X-Ray Ordered: Yes # of Views/Limited/Complete: 1 View Indication: Chest Pain EP Interpretation: Yes Interpretation: no consolidation, no effusion, no pneumothorax, no acute cardiopulmonary disease Impression: No acute disease Electronically Signed by: Electronically signed by Chetan Barron MD Last Vital Signs Date Time Temp Pulse Resp B/P (MAP) Pulse Ox O2 Delivery O2 Flow Rate FiO2 02/24/18 11:47 87 19 Room Air 02/24/18 11:47 149/77 99 02/24/18 10:12 97.3 97.3 Status: improved Disposition: ADMITTED INPATIENT Condition: Serious Referrals: NOT CHOSEN IPA/,REFERRING (PCP) Chetan Barron MD Feb 24, 2018 13:00
[2018-02-24 14:28] VITALS: BP 161/69
[2018-02-24] MEDS ORDERED: Albuterol/Ipratropium 3ml neb HHN PRN (15:30)
[2018-02-24] MEDS ORDERED: dilTIAZem HCl 25mg/5ml Inj IV PRN (15:30)
[2018-02-24] MEDS ORDERED: Enalaprilat 2.5mg/2ml Inj IV PRN (15:30)
[2018-02-24] MEDS ORDERED: Nitroglycerin Subl 0.4mg tab SL PRN (15:30)
[2018-02-24] MEDS ORDERED: Ketorolac 30mg Inj IV PRN (15:30)
[2018-02-24] MEDS ORDERED: Miralax 17gm pkt ORAL PRN (15:30)
[2018-02-24] MEDS ORDERED: Promethazine/Codeine 5ml UD ORAL PRN (16:30)
[2018-02-24 16:38] VITALS: BP 130/80
--- NOTE | 2018-02-24 19:15 | Cardiology Progress Note ---
Assessment/Plan Assessment/Plan [id number] cp obeisty copd repeat ekg adn trop in am if neg ok to dc home i see no need for any further cardiac testing othewise if all neg Objective Last 24 Hour Vital Signs Date Time Temp Pulse Resp B/P (MAP) Pulse Ox O2 Delivery O2 Flow Rate FiO2 02/24/18 16:43 80 02/24/18 16:38 98.1 81 18 130/80 98 Room Air 98.1 02/24/18 15:56 110 23 118/86 100 Room Air 02/24/18 14:28 87 15 161/69 100 Room Air 02/24/18 11:47 87 19 Room Air 02/24/18 11:47 87 19 149/77 99 Room Air 02/24/18 10:12 97.3 92 20 162/91 100 Room Air 97.3 Laboratory Tests Test 02/24/18 10:45 02/24/18 16:05 White Blood Count 8.8 K/UL (4.8-10.8) Red Blood Count 4.17 M/UL (4.20-5.40) L Hemoglobin 12.3 G/DL (12.0-16.0) Hematocrit 36.0 % (37.0-47.0) L Mean Corpuscular Volume 86 FL (80-99) Mean Corpuscular Hemoglobin 29.4 PG (27.0-31.0) Mean Corpuscular Hemoglobin Concent 34.1 G/DL (32.0-36.0) Red Cell Distribution Width 13.0 % (11.6-14.8) Platelet Count 216 K/UL (150-450) Mean Platelet Volume 9.4 FL (6.5-10.1) Neutrophils (%) (Auto) 72.0 % (45.0-75.0) Lymphocytes (%) (Auto) 19.2 % (20.0-45.0) L Monocytes (%) (Auto) 5.2 % (1.0-10.0) Eosinophils (%) (Auto) 2.9 % (0.0-3.0) Basophils (%) (Auto) 0.7 % (0.0-2.0) Sodium Level 141 MMOL/L (136-145) Potassium Level 3.7 MMOL/L (3.5-5.1) Chloride Level 106 MMOL/L (98-107) Carbon Dioxide Level 30 MMOL/L (21-32) Anion Gap 5 mmol/L (5-15) Blood Urea Nitrogen 10 mg/dL (7-18) Creatinine 0.8 MG/DL (0.55-1.30) Estimat Glomerular Filtration Rate > 60 mL/min (>60) Glucose Level 105 MG/DL (74-106) Calcium Level 8.4 MG/DL (8.5-10.1) L Total Bilirubin 0.4 MG/DL (0.2-1.0) Aspartate Amino Transf (AST/SGOT) 15 U/L (15-37) Alanine Aminotransferase (ALT/SGPT) 17 U/L (12-78) Alkaline Phosphatase 73 U/L (46-116) Total Creatine Kinase 49 U/L (26-308) Creatine Kinase MB 0.5 NG/ML (0.0-3.6) Creatine Kinase MB Relative Index 1.0 Troponin I 0.000 ng/mL (0.000-0.056) 0.000 ng/mL (0.000-0.056) Pro-B-Type Natriuretic Peptide 35 pg/mL (0-125) Total Protein 6.8 G/DL (6.4-8.2) Albumin 3.2 G/DL (3.4-5.0) L Globulin 3.6 g/dL Albumin/Globulin Ratio 0.9 (1.0-2.7) L RIANNA FIGUEROA Feb 24, 2018 19:15
[2018-02-24 20:00] VITALS: BP 150/80
[2018-02-24] MEDS: Heparin 5000 units/ml inj SUBQ SCH (20:30)
--- NOTE | 2018-02-24 20:30 | Consultation ---
DATE OF CONSULTATION: 02/24/2018 CARDIOLOGY CONSULTATION CONSULTING PHYSICIAN: Angelo Valentine M.D. REFERRING PHYSICIAN: Alexx Ponce M.D. REASON FOR REFERRAL: Chest pain. HISTORY OF PRESENT ILLNESS: This is an elderly female, who has history of being overweight. She presented to the hospital because of episodes of chest pain that she experienced yesterday, one second in duration or two seconds in duration in the center of the chest, which is sharp, shooting in one particular area. She has three radiations to the left side of the chest, each lasted approximately two seconds, really does not have these with exertion. She does have a history of some kind of issue that she does relate it to mold and she occasionally gets short of breath at that point. There is no PND, no orthopnea. She uses two pillows. There is no dizziness or lightheadedness. She does have some palpitations early in the morning when she first gets up. PAST MEDICAL HISTORY: Positive for history of COPD with chronic exacerbation, recent pneumonitis, bacteriuria, lactic acidosis, hypoxemia, obesity, coccyx deep tissue injury ulcer. The patient denies any diabetes or high blood pressure. No heart attack. No cancer. No stroke. No hepatitis or tuberculosis. No asthma. No emphysema. No ulcers. No kidney problems or liver problems recently. Her past medical history also includes history of obsessive-compulsive disorder and obesity according to the chart. ALLERGIES: She is allergic to sulfa according to the chart. SOCIAL HISTORY: No history of smoking, alcohol, or drugs at this time, although she has never used them previously. REVIEW OF SYSTEMS: GASTROINTESTINAL: Positive for constipation. GENITOURINARY: Negative. PULMONARY: Positive for coughing at times and wheezing. CONSTITUTIONAL: Negative. PHYSICAL EXAMINATION: GENERAL: Shows to be an obese female, in no respiratory distress. HEENT: Unremarkable. NECK: Supple. No jugular venous distention. No abdominojugular reflux noted. LUNGS: Clear to auscultation and percussion. CARDIAC: S1 is normal. S2 is normal. Regular rate and rhythm. No heaves, thrills, or gallops noted. ABDOMEN: Soft and nontender. Positive bowel sounds. EXTREMITIES: There is no clubbing, cyanosis, nor is there any edema. NEUROLOGICAL: She is awake, alert, and responsive, in no apparent respiratory distress. LABORATORY AND DIAGNOSTIC DATA: EKG is normal sinus rhythm, no ST or T-wave abnormalities. Blood tests show white count of 8.8 with hemoglobin of 12.3, and platelet count of 216. Sodium is 141, potassium 3.7, chloride 106, bicarbonate 30, BUN of 10, creatinine 0.8, glucose of 105, and calcium is 8.4. Liver function tests are normal. Two sets of cardiac enzymes are both all negative, and she did have a chest x-ray that was performed today that showed no acute processes. ASSESSMENT AND PLAN: 1. Atypical chest pain. 2. Obesity. 3. COPD history. Dr. Ponce, this patient was seen in cardiac consultation. The patient does not have electrocardiographic changes nor abnormality in the cardiac enzyme. Other set of cardiac enzymes should be repeated tomorrow as well as the EKG, otherwise I think she should probably go home, these episodes last only a few seconds are primarily non-ischemic in etiology and I do not think they need any further workup at this time. Angelo Valentine M.D. DR: SHEA JOB#: [id number] CC:
--- NOTE | 2018-02-24 22:50 | History and Physical ---
History of Present Illness General Date patient seen: Feb 24, 2018 Reason for Hospitalization: Chest Pain Present Illness HPI 52-year-old female presented to ED for evaluation of an episode chest pain which started this morning at rest. Left-sided, pressure-like, 5 out of 10, nonradiating. Lasted for several minutes then resolved. Denies any chest pain at this time. History of hypertension. pt is admitted to telemetry for further evaluation. Allergies: Coded Allergies: SULFA (SULFONAMIDE ANTIBIOTICS) (Verified Allergy, Unknown, 01/06/18) Medication History Scheduled Benzonatate (Tessalon Perle), 100 MG ORAL THREE TIMES A DAY, (Reported) Methylprednisolone* (Medrol*), 4 MG ORAL DAILY No Known Medications* (NKM - No Known Medications*), 0 ., (Reported) Scheduled PRN Albuterol Sulfate* (Proair Hfa*), 1 PUFF INH Q6H PRN for Shortness of Breath, ( Reported) Patient History Healthcare decision maker Resuscitation status Full Code Advanced Directive on File Past Medical/Surgical History Past Medical/Surgical History: (1) COPD (chronic obstructive pulmonary disease) Review of Systems All Other Systems: negative except mentioned in HPI Physical Exam General Appearance: WD/WN Lines, tubes and drains: peripheral HEENT: normocephalic, atraumatic Neck: non-tender, normal alignment Respiratory/Chest: chest wall non-tender, lungs clear, normal breath sounds Cardiovascular/Chest: normal peripheral pulses, normal rate, regular rhythm Abdomen: normal bowel sounds, non tender Genitourinary/Rectal: normal genital exam Extremities: normal range of motion 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 Last 24 Hour Vital Signs Date Time Temp Pulse Resp B/P (MAP) Pulse Ox O2 Delivery O2 Flow Rate FiO2 02/24/18 20:00 97.6 90 18 150/80 98 Room Air 97.6 02/24/18 20:00 90 02/24/18 16:43 80 02/24/18 16:38 98.1 81 18 130/80 98 Room Air 98.1 02/24/18 15:56 110 23 118/86 100 Room Air 02/24/18 14:28 87 15 161/69 100 Room Air 02/24/18 11:47 87 19 Room Air 02/24/18 11:47 87 19 149/77 99 Room Air 02/24/18 10:12 97.3 92 20 162/91 100 Room Air 97.3 Laboratory Tests Test 02/24/18 10:45 02/24/18 16:05 White Blood Count 8.8 K/UL (4.8-10.8) Red Blood Count 4.17 M/UL (4.20-5.40) L Hemoglobin 12.3 G/DL (12.0-16.0) Hematocrit 36.0 % (37.0-47.0) L Mean Corpuscular Volume 86 FL (80-99) Mean Corpuscular Hemoglobin 29.4 PG (27.0-31.0) Mean Corpuscular Hemoglobin Concent 34.1 G/DL (32.0-36.0) Red Cell Distribution Width 13.0 % (11.6-14.8) Platelet Count 216 K/UL (150-450) Mean Platelet Volume 9.4 FL (6.5-10.1) Neutrophils (%) (Auto) 72.0 % (45.0-75.0) Lymphocytes (%) (Auto) 19.2 % (20.0-45.0) L Monocytes (%) (Auto) 5.2 % (1.0-10.0) Eosinophils (%) (Auto) 2.9 % (0.0-3.0) Basophils (%) (Auto) 0.7 % (0.0-2.0) Sodium Level 141 MMOL/L (136-145) Potassium Level 3.7 MMOL/L (3.5-5.1) Chloride Level 106 MMOL/L (98-107) Carbon Dioxide Level 30 MMOL/L (21-32) Anion Gap 5 mmol/L (5-15) Blood Urea Nitrogen 10 mg/dL (7-18) Creatinine 0.8 MG/DL (0.55-1.30) Estimat Glomerular Filtration Rate > 60 mL/min (>60) Glucose Level 105 MG/DL (74-106) Calcium Level 8.4 MG/DL (8.5-10.1) L Total Bilirubin 0.4 MG/DL (0.2-1.0) Aspartate Amino Transf (AST/SGOT) 15 U/L (15-37) Alanine Aminotransferase (ALT/SGPT) 17 U/L (12-78) Alkaline Phosphatase 73 U/L (46-116) Total Creatine Kinase 49 U/L (26-308) Creatine Kinase MB 0.5 NG/ML (0.0-3.6) Creatine Kinase MB Relative Index 1.0 Troponin I 0.000 ng/mL (0.000-0.056) 0.000 ng/mL (0.000-0.056) Pro-B-Type Natriuretic Peptide 35 pg/mL (0-125) Total Protein 6.8 G/DL (6.4-8.2) Albumin 3.2 G/DL (3.4-5.0) L Globulin 3.6 g/dL Albumin/Globulin Ratio 0.9 (1.0-2.7) L Height (Feet): 5 Height (Inches): 8.00 Weight (Pounds): 280 Medications Current Medications Medications (Trade) Dose Ordered Sig/Gabrielle Route PRN Reason Start Time Stop Time Status Last Admin Dose Admin Acetaminophen (Tylenol) 650 mg Q4H PRN ORAL FEVER 02/24/18 15:30 03/26/18 15:29 Albuterol/ Ipratropium (Albuterol/ Ipratropium) 3 ml EVERY 4 HOURS PRN HHN Shortness of Breath 02/24/18 15:30 03/01/18 15:29 Aspirin (ASA) 162 mg DAILY ORAL 02/25/18 09:00 03/27/18 08:59 Diltiazem HCl (Cardizem) 10 mg EVERY HOUR PRN IV heart rate more than 120, 02/24/18 15:30 03/26/18 15:29 Enalaprilat (Vasotec) 2.5 mg EVERY 6 HOURS PRN IV sbp more than 160 02/24/18 15:30 03/26/18 15:29 Heparin Sodium (Porcine) (Heparin 5000 units/ml) 5,000 units EVERY 12 HOURS SUBQ 02/24/18 21:00 03/26/18 20:59 02/24/18 20:30 Ketorolac Tromethamine (Toradol 30mg) 30 mg Q6HR PRN IV moderate pain ( 4-6) 02/24/18 15:30 03/01/18 15:29 Nitroglycerin (Ntg) 0.4 mg Q 5 MINS PRN SL Prn Chest Pain 02/24/18 15:30 03/26/18 15:29 Ondansetron HCl (Zofran) 4 mg Q6H PRN IVP Nausea & Vomiting 02/24/18 15:30 03/26/18 15:29 Polyethylene Glycol (Miralax) 17 gm DAILYPRN PRN ORAL Constipation 02/24/18 15:30 03/26/18 15:29 Promethazine HCl/ Codeine (Phenergan with Codeine) 5 ml Q8HR PRN ORAL For Cough 02/24/18 16:30 03/26/18 16:29 Temazepam (Restoril) 15 mg HSPRN PRN ORAL Insomnia 02/24/18 15:30 03/03/18 15:29 Assessment/Plan Problem List: (1) ACS (acute coronary syndrome) ICD Codes: I24.9 - Acute ischemic heart disease, unspecified SNOMED: 019364809 (2) Chest pain ICD Codes: R07.9 - Chest pain, unspecified SNOMED: 99960168 (3) COPD (chronic obstructive pulmonary disease) ICD Codes: J44.9 - Chronic obstructive pulmonary disease, unspecified SNOMED: 10872487 Assessment/Plan serial ekg, troponin, echo cariology evaluation symptoamtic treatment Alexx Ponce MD Feb 24, 2018 22:50
[2018-02-25] VITALS: BP 147/80
[2018-02-25 04:00] VITALS: BP 147/78
[2018-02-25 08:00] VITALS: BP 131/50
[2018-02-25] MEDS: Heparin 5000 units/ml inj SUBQ SCH (08:52)
[2018-02-25] MEDS ORDERED: Aspirin Baby 81mg ORAL SCH (09:00)
[2018-02-25 09:10] LABS: BASOPHILS % (AUTO) 1.2 % (0.0-2.0); EOSINOPHILS % (AUTO) 7.2 % (0.0-3.0); HEMATOCRIT 36.5 % (37.0-47.0); MEAN CORPUSCULAR VOLUME 87 FL (80-99); MONOCYTES % (AUTO) 5.1 % (1.0-10.0); NEUTROPHILS % (AUTO) 54.6 % (45.0-75.0); PLATELET COUNT 203 K/UL (150-450); RED CELL DISTRIBUTION WIDTH 12.8 % (11.6-14.8); WHITE BLOOD COUNT 5.4 K/UL (4.8-10.8)
[2018-02-25 09:27] LABS: CHOLESTEROL 165 MG/DL (< 200); HDL CHOLESTEROL 49 MG/DL (40-60); TRIGLYCERIDES 188 MG/DL (30-150)
[2018-02-25 12:00] VITALS: BP 139/76
--- NOTE | 2018-02-25 12:29 | Pulmonology Progress Note ---
Assessment/Plan Problems: (1) ACS (acute coronary syndrome) (2) Chest pain (3) COPD (chronic obstructive pulmonary disease) Assessment/Plan troponin negative ekg unchanged d/w Dr. Valentine. pt can go home now. no need for further studies. Subjective ROS Limited/Unobtainable: No Constitutional: Reports: no symptoms HEENT: Repors: no symptoms Allergies: Coded Allergies: SULFA (SULFONAMIDE ANTIBIOTICS) (Verified Allergy, Unknown, 01/06/18) Objective Last 24 Hour Vital Signs Date Time Temp Pulse Resp B/P (MAP) Pulse Ox O2 Delivery O2 Flow Rate FiO2 02/25/18 11:37 75 16 Room Air 21 02/25/18 08:00 97.7 91 20 131/50 96 Room Air 97.7 02/25/18 04:00 72 02/25/18 04:00 97.0 79 20 147/78 98 Room Air 97.0 02/25/18 00:00 90 02/25/18 00:00 97.2 81 18 147/80 95 Room Air 97.2 02/24/18 20:00 97.6 90 18 150/80 98 Room Air 97.6 02/24/18 20:00 90 02/24/18 16:43 80 02/24/18 16:38 98.1 81 18 130/80 98 Room Air 98.1 02/24/18 15:56 110 23 118/86 100 Room Air 02/24/18 14:28 87 15 161/69 100 Room Air Intake and Output 02/24/18 02/25/18 19:00 07:00 Intake Total 616 ml Balance 616 ml Intake Oral 116 ml IV Total 500 ml # Voids 1 3 Objective General Appearance: WD/WN Lines, tubes and drains: peripheral HEENT: normocephalic, atraumatic Neck: non-tender, normal alignment Respiratory/Chest: chest wall non-tender, lungs clear, normal breath sounds Cardiovascular/Chest: normal peripheral pulses, normal rate, regular rhythm Abdomen: normal bowel sounds, non tender Genitourinary/Rectal: normal genital exam Extremities: normal range of motion Neurologic: e merchant II-XII grossly normal Laboratory Tests 02/24/18 16:05: Troponin I 0.000 02/25/18 07:55: Troponin I 0.000, White Blood Count 5.4, Red Blood Count 4.20, Hemoglobin 12.0, Hematocrit 36.5L, Mean Corpuscular Volume 87, Mean Corpuscular Hemoglobin 28.7, Mean Corpuscular Hemoglobin Concent 33.0, Red Cell Distribution Width 12.8, Platelet Count 203, Mean Platelet Volume 9.5, Neutrophils (%) (Auto) 54.6, Lymphocytes (%) (Auto) 32.0, Monocytes (%) (Auto) 5.1, Eosinophils (%) (Auto) 7.2H, Basophils (%) (Auto) 1.2, Prothrombin Time 10.1, Prothromb Time International Ratio 1.0, Activated Partial Thromboplast Time 26, C-Reactive Protein, Quantitative 1.0H, Triglycerides Level 188H, Cholesterol Level 165, LDL Cholesterol 102H, HDL Cholesterol 49, Cholesterol/HDL Ratio 3.4, Thyroid Stimulating Hormone (TSH) 1.722 Current Medications Medications (Trade) Dose Ordered Sig/Gabrielle Route PRN Reason Start Time Stop Time Status Last Admin Dose Admin Acetaminophen (Tylenol) 650 mg Q4H PRN ORAL FEVER 02/24/18 15:30 03/26/18 15:29 Albuterol/ Ipratropium (Albuterol/ Ipratropium) 3 ml EVERY 4 HOURS PRN HHN Shortness of Breath 02/24/18 15:30 03/01/18 15:29 Aspirin (ASA) 162 mg DAILY ORAL 02/25/18 09:00 03/27/18 08:59 02/25/18 08:48 Diltiazem HCl (Cardizem) 10 mg EVERY HOUR PRN IV heart rate more than 120, 02/24/18 15:30 03/26/18 15:29 Enalaprilat (Vasotec) 2.5 mg EVERY 6 HOURS PRN IV sbp more than 160 02/24/18 15:30 03/26/18 15:29 Heparin Sodium (Porcine) (Heparin 5000 units/ml) 5,000 units EVERY 12 HOURS SUBQ 02/24/18 21:00 03/26/18 20:59 02/25/18 08:52 Ketorolac Tromethamine (Toradol 30mg) 30 mg Q6HR PRN IV moderate pain ( 4-6) 02/24/18 15:30 03/01/18 15:29 Nitroglycerin (Ntg) 0.4 mg Q 5 MINS PRN SL Prn Chest Pain 02/24/18 15:30 03/26/18 15:29 Ondansetron HCl (Zofran) 4 mg Q6H PRN IVP Nausea & Vomiting 02/24/18 15:30 03/26/18 15:29 Polyethylene Glycol (Miralax) 17 gm DAILYPRN PRN ORAL Constipation 02/24/18 15:30 03/26/18 15:29 Promethazine HCl/ Codeine (Phenergan with Codeine) 5 ml Q8HR PRN ORAL For Cough 02/24/18 16:30 03/26/18 16:29 Temazepam (Restoril) 15 mg HSPRN PRN ORAL Insomnia 02/24/18 15:30 03/03/18 15:29 Alexx Ponce MD Feb 25, 2018 12:29
[2018-02-25 16:00] VITALS: BP 137/82
--- NOTE | 2018-02-25 17:26 | Cardiology Report ---
APPROVED REPORT EXAM: Two-dimensional and M-mode echocardiogram with Doppler and color Doppler. INDICATION Left ventricular function M-Mode DIMENSIONS IVSd1.2 (0.7-1.1cm)Left Atrium (MM)3.3 (1.6-4.0cm) LVDd3.9 (3.5-5.6cm)Aortic Root2.9 (2.0-3.7cm) PWd1.0 (0.7-1.1cm)Aortic Cusp Exc.2.0 (1.5-2.0cm) LVDs2.7 (2.5-4.0cm) PWs1.7 cm Normal left ventricular chamber size, systolic function and wall motion to the extent visualized. Left ventricular ejection fraction estimated to be 60 %. Mild left ventricular hypertrophy. Anterior Echo-free space, may be due to pericardial fat or effusion. All other cardiac chamber sizes are within normal limits. Focal aortic valve sclerosis with adequate cusp excursion. Thickened mitral valve leaflets with normal excursion. Mild mitral annulus and aortic root calcification. Pulmonic valve not well visualized. Normal tricuspid valve structure. IVC dilated at 2.2 cm with physiological collapse. A color flow and spectral Doppler study was performed and revealed: No aortic insufficiency. Trace mitral regurgitation. reduced left ventricular relaxation c/w impaired relaxation diastolic dysfunction. Trace tricuspid regurgitation. Tricuspid systolic velocities suggests peak right ventricular systolic pressure of 24 mmHg. No pulmonic regurgitation present.
--- NOTE | 2018-02-25 17:46 | Cardiology Report ---
APPROVED REPORT EKG Measurement Heart [id number] Normal sinus rhythm Nonspecific ST and T wave abnormality Abnormal ECG
--- NOTE | 2018-02-25 22:55 | Consultation ---
History of Present Illness General Date patient seen: Feb 24, 2018 Chief Complaint: Chest Pain Present Illness HPI 52-year-old female presented to ED for evaluation of an episode chest pain which started this morning at rest. Allergies: Coded Allergies: SULFA (SULFONAMIDE ANTIBIOTICS) (Verified Allergy, Unknown, 01/06/18) Medication History Scheduled Benzonatate (Tessalon Perle), 100 MG ORAL THREE TIMES A DAY, (Reported) Methylprednisolone* (Medrol*), 4 MG ORAL DAILY No Known Medications* (NKM - No Known Medications*), 0 ., (Reported) Scheduled PRN Albuterol Sulfate* (Proair Hfa*), 1 PUFF INH Q6H PRN for Shortness of Breath, ( Reported) Patient History History Provided By: Patient, Caregiver, PMD Healthcare decision maker Resuscitation status Full Code Advanced Directive on File Physical Exam Last 24 Hour Vital Signs Date Time Temp Pulse Resp B/P (MAP) Pulse Ox O2 Delivery O2 Flow Rate FiO2 02/25/18 19:30 86 16 Room Air 21 02/25/18 16:00 80 02/25/18 16:00 97.7 80 22 137/82 98 Room Air 97.7 02/25/18 12:00 94 02/25/18 12:00 97.5 82 20 139/76 96 Room Air 97.5 02/25/18 11:37 75 16 Room Air 21 02/25/18 08:00 97.7 91 20 131/50 96 Room Air 97.7 02/25/18 08:00 84 02/25/18 04:00 72 02/25/18 04:00 97.0 79 20 147/78 98 Room Air 97.0 02/25/18 00:00 90 02/25/18 00:00 97.2 81 18 147/80 95 Room Air 97.2 Intake and Output 02/24/18 02/25/18 19:00 07:00 Intake Total 616 ml Balance 616 ml Intake Oral 116 ml IV Total 500 ml # Voids 1 3 Laboratory Tests Test 02/25/18 07:55 White Blood Count 5.4 K/UL (4.8-10.8) Red Blood Count 4.20 M/UL (4.20-5.40) Hemoglobin 12.0 G/DL (12.0-16.0) Hematocrit 36.5 % (37.0-47.0) L Mean Corpuscular Volume 87 FL (80-99) Mean Corpuscular Hemoglobin 28.7 PG (27.0-31.0) Mean Corpuscular Hemoglobin Concent 33.0 G/DL (32.0-36.0) Red Cell Distribution Width 12.8 % (11.6-14.8) Platelet Count 203 K/UL (150-450) Mean Platelet Volume 9.5 FL (6.5-10.1) Neutrophils (%) (Auto) 54.6 % (45.0-75.0) Lymphocytes (%) (Auto) 32.0 % (20.0-45.0) Monocytes (%) (Auto) 5.1 % (1.0-10.0) Eosinophils (%) (Auto) 7.2 % (0.0-3.0) H Basophils (%) (Auto) 1.2 % (0.0-2.0) Prothrombin Time 10.1 SEC (9.30-11.50) Prothromb Time International Ratio 1.0 (0.9-1.1) Activated Partial Thromboplast Time 26 SEC (23-33) Troponin I 0.000 ng/mL (0.000-0.056) C-Reactive Protein, Quantitative 1.0 mg/dL (0.00-0.90) H Triglycerides Level 188 MG/DL (30-150) H Cholesterol Level 165 MG/DL (< 200) LDL Cholesterol 102 mg/dL (<100) H HDL Cholesterol 49 MG/DL (40-60) Cholesterol/HDL Ratio 3.4 (3.3-4.4) Thyroid Stimulating Hormone (TSH) 1.722 uiU/mL (0.358-3.740) Height (Feet): 5 Height (Inches): 8.00 Weight (Pounds): 280 Assessment/Plan Status: stable, progressing Ji Moahn M.D. Feb 25, 2018 22:55
--- NOTE | 2018-02-27 13:59 | Discharge Summary ---
Discharge Summary Discharge Summary Discharge Summary DATE OF ADMISSION: 02/24/2018 DATE OF DISCHARGE: 02/25/2018 CONSULTANTS: Dr. Ji Valentine BRIEF HOSPITAL COURSE: Patient is a 52-year-old female who presented to ED for evaluation of chest pain that started in the morning, at rest. Pain was located on the left side, pressure-like, 5 out of 10, and nonradiating. It lasted for several minutes then resolved. She has history of hypertension and asthma. On evaluation at ED patient was chest pain-free. She declined pain meds. Blood work showed no leukocytosis, and troponin was negative. EKG was in sinus rhythm with no acute ischemic changes. Chest x-ray was unremarkable. She was admitted to telemetry for evaluation of possible acute coronary syndrome. She underwent cardiac evaluation with Dr. Angelo burleson. Troponins were negative, EKG remained unchanged. No need for further studies, patient was eventually cleared for discharge home. FINAL DIAGNOSES: Atypical chest pain Obesity COPD by history DISPOSITION: A shunt was discharged home DISCHARGE MEDICATIONS: Refer to Discharge Medication List. DISCHARGE INSTRUCTIONS: Follow up with PCP in a week. I have been assigned to dictate discharge summary on this account, and I was not involved in the patient's management. Ashley Sandy NP Feb 27, 2018 13:59
== END 2018-02-25 20:30 | disposition home or self-care (01) | DRG 313 ==
LOC: EMR 10:54 → 2E 12:51 → EDBEDREQ 12:55
DX: R07.89 Other chest pain (principal); E66.9 Obesity, unspecified; J44.9 Chronic obstructive pulmonary disease, unspecified; I10 Essential (primary) hypertension; Z88.2 Allergy status to sulfonamides; F42.9 Obsessive-compulsive disorder, unspecified
CPT/HCPCS: 36415; 71045; 80053; 80061; 82550; 82553; 83880; 84443; 84484; 85025; 85610; 85730; 86140; 93005; 93306; 94664; 99285

== ENCOUNTER 2018-04-01 12:09 | Emergency (ER) | payer MEDICAID ==
[~2018-04-01] VITALS: Ht 172.7 cm; Wt 127.0 kg
[~2018-04-01 12:09] MED LIST changes: +NKM
--- NOTE | 2018-04-01 12:52 | Emergency Room Report ---
History of Present Illness General Chief Complaint: General Complaint Source: Patient, Medical Record Present Illness HPI 52-year-old female patient presents to ER with anxiety related problems. patient denies acute complaints at this time. Patient reports that she has black mold infection in her house and is currently in process of moving, reports staying at hotels. Reports has not been diagnosed with any acute problems related to black mold. Patient reports that she had an appointment with her primary care provider for testing due to black mold but skipped the appointment. Patient reports that she did not follow-up and make an appointment. Patient denies acute symptoms at this time. Patient is fever, chest pain, shortness breath, abdominal pain, other symptoms. Patient reports that she has not seen a primary care provider. Patient reports history of hypertension but is not taking any medications currently. Patient reports that she has not followed up with this. Allergies: Coded Allergies: SULFA (SULFONAMIDE ANTIBIOTICS) (Verified Allergy, Unknown, 01/06/18) Patient History Past Medical History: see triage record Last Menstrual Period: 03/18/18 Reviewed Nursing Documentation: PMH: Agreed; PSxH: Agreed Nursing Documentation-PMH Past Medical History: No History, Except For Hx Cardiac Problems: No Hx Hypertension: Yes Hx Asthma: Yes Hx COPD: Yes Hx Cancer: No Hx Gastrointestinal Problems: No Hx Neurological Problems: No Review of Systems All Other Systems: negative except mentioned in HPI Physical Exam Vital Signs Date Time Temp Pulse Resp B/P (MAP) Pulse Ox O2 Delivery O2 Flow Rate FiO2 04/01/18 12:15 98.3 96 18 157/80 96 Room Air 98.2 Sp02 EP Interpretation: reviewed, normal General Appearance: well appearing, no apparent distress, alert, GCS 15 Head: normocephalic, atraumatic Eyes: bilateral eye normal inspection, bilateral eye PERRL ENT: hearing grossly normal, normal pharynx, no angioedema, normal voice, uvula midline, moist mucus membranes Neck: full range of motion Respiratory: lungs clear, normal breath sounds, no rhonchi, no respiratory distress, no accessory muscle use, no wheezing, speaking full sentences Cardiovascular #1: regular rate, rhythm, no edema Gastrointestinal: non tender, soft, no mass, non-distended, no guarding, no rebound Genitourinary: no CVA tenderness Musculoskeletal: back normal, digits/nails normal, gait/station normal, normal range of motion, non-tender Neurologic: alert, oriented x3, responsive, sound recordist III-XII nml as tested, motor strength/tone normal, sensory intact Psychiatric: mood/affect normal Skin: no rash Lymphatic: no adenopathy Medical Decision Making PA Attestation Dr. Huffman is my supervising Physician whom patient management has been discussed with. Diagnostic Impression: Primary Impression: Encounter for generalized patient complaints ER Course Pt. presents to the ED c/o anxiousness. multiple differentials considered Vital signs: are WNL, pt. is afebrile ER COURSE: physical exam benign, lungs clear to auscultation, cranial nerves intact, denies symptoms acutely in ER. Discussed with patient need follow-up with primary care doctor for further testing of black mold and possible, medications. Does not do testing in the ER. follow with PCP for hypertension treatment and management, does not require acute treatment in the ER at this time, denies chest pain, shortness of breath, headache, abdominal pain, vision changes. Informed patient symptoms may be related to anxiety. Informed patient follow up with mental health urgent care, provided with contact information, for further management and treatment of anxiousness feelings. Patient reports no longer feeling anxious after discussing black mold and need for follow-up appointments. Patient reports that she will contact her insurance and requests new appointment with primary care provider. Patient reports feeling better and is ready to be discharged. Patient ambulatory, talking without difficulty, smiling, nontoxic-appearing in no acute distress. patient is a danger to herself or others at this time. instructed patient follow ER for acute onset of any new symptoms. DISCHARGE: At this time pt is stable for d/c to home. Patient is resting comfortably, in no acute distress, nontoxic appearing, talking without difficulty. Patient to take medications as instructed Will provide with patient care instructions and any necessary prescriptions. Care plan and follow-up instructions provided. Patient instructed to follow-up with primary care provider in 3 - 5 days. Patient questions asked and answered. Patient reports understanding and agreement to treatment plan. ER precautions given. Patient instructed to return to ER immediately for any new or worsening of symptoms including but not limited to increasing SOB, persistent fever, chest pain, intractable vomiting. - Please note that this Emergency Department Report was dictated using [employer] technology software, occasionally this can lead to erroneous entry secondary to interpretation by the dictation equipment. Last Vital Signs Date Time Temp Pulse Resp B/P (MAP) Pulse Ox O2 Delivery O2 Flow Rate FiO2 04/01/18 12:15 98.3 96 18 157/80 96 Room Air 98.2 Disposition: HOME, SELF-CARE Condition: Stable Additional Instructions: Followup with primary care provider in 3 -5 days. Discuss referral to specialists for black mold testing. discussed medications for anxiety and hypertension as needed. Discuss referrals needed for these diagnoses at that time. Take medications as directed. Patient questions asked and answered. ER precautions given, patient instructed to return to ER immediately for any new or worsening of symptoms including but not limited chest pain, shortness of breath, abdominal pain injection vomiting, vision loss. Suresh Tracy April 01, 2018 12:52
[2018-04-01 13:54] VITALS: BP 157/80
[2018-04-01 13:55] VITALS: BP 157/80
== END 2018-04-01 13:15 | disposition home or self-care (01) ==
LOC: EMR 12:45
DX: F41.9 Anxiety disorder, unspecified (principal); I10 Essential (primary) hypertension; J44.9 Chronic obstructive pulmonary disease, unspecified; Z88.2 Allergy status to sulfonamides
CPT/HCPCS: 99283